=== PATIENT | male | born 1940 | race Caucasian/White ===

== ENCOUNTER 2024-09-21 19:26 | Observation (INO) | payer MEDICARE, BC, SELFPAY ==
[2024-09-21 15:12] VITALS: BP 103/88
[2024-09-21 15:57] LABS: ALT (SGPT) 17 U/L (0-50); AST (SGOT) 24 U/L (17-59); Albumin 4.4 g/dl (3.5-5.0); Alkaline Phosphatase 74 U/L (38-126); Blood Urea Nitrogen 35 mg/dl (9-20); Calcium 9.6 mg/dl (8.4-10.2); Carbon Dioxide 26 mmol/L (22-30); Chloride 104 mmol/L (98-107); Estimated Creatinine Clearance 39 ml/min; Glucose 170 mg/dl (70-99); Potassium 3.5 mmol/L (3.5-5.1); Sodium 143 mmol/L (135-145); Total Bilirubin 0.8 mg/dl (0.2-1.3); Total Protein 7.2 g/dl (6.3-8.2); eGFR > 60.00
[2024-09-21 16:00] VITALS: BP 116/55
[2024-09-21 16:22] LABS: % Basophils 0.4 % (0-2); % Eosinophils 1.2 % (0-6); % Immature Granulocytes 0.5 % (0-0.5); % Lymphocytes 26.7 % (20.5-51.1); % Monocytes 8.2 % (1.7-9.3); Absolute Eosinophils 0.1 10^3/uL (0-0.7); Absolute Immature Granulocytes 0.1 10^3/uL (0-0.05); Absolute Lymphocytes 2.7 10^3/uL (1.2-3.4); Absolute Monocytes 0.8 10^3/uL (0.1-0.6); Absolute Neutrophils 6.4 10^3/uL (1.4-6.5); Hematocrit 45.6 % (39.0-52.0); Mean Corp Hgb Conc. 35.1 g/dL (33.0-37.0); Mean Corpuscular Hgb 31.5 pg (27.0-31.0); Mean Corpuscular Volume 89.8 fL (80.0-94.0); Mean Platelet Volume 10.1 fL (7.4-10.4); Nucleated Red Blood Cells % 0 % (-); Platelet Count 271 10^3/uL (130-400); Red Blood Cell Count 5.08 10^6/uL (4.70-6.10); Red Cell Dist. Width 12.8 % (11.5-14.5); White Blood Cell Count 10.2 10^3/uL (4.8-10.8)
--- NOTE | 2024-09-21 16:36 | ED.GENMED ---
History of Present Illness
General
Chief Complaint: Weakness
Source: patient, family and ambulance crew
Exam Limitations: dementia
Time Seen by Provider: 09/21/24 16:03
Nursing documentation reviewed up to this point in time: agreed with
History of Present Illness
History of Present Illness:
84 y/o M with h/o dementia, htn
according to his , pt is more weak than usual and she thinks his legs are weak and he isn't walking well
she also said that he is having a hard time feeding himself the past 2 days
pt has severe dementia baseline
she sleeps on the couch so that she can hear if he tries to get out
pt has not had any fever,chills, vomiting, diarrhea, h/o recurrent UTIs
no abdominal pain
i spoke with , who isn't here, and initially this is the story she told me but after a second call, she tells me that she is tryign to have him placed in a NH and she has reached out to [facility] and that they watned him
evaluated first.
pt's says he is too much for her becuase she is sick
Past History
Past History
ED Past Medical History: HTN and Other (dementia)
ED Past Surgical History: Urological
Social History
Tobacco: Non-smoker
Alcohol: None
Drug: None
Personal:
Living: with family
Employment: Retired
Family History
Family History: Other (Noncontributory)
Review of Systems
Review of Systems
Allergies reviewed?: Yes
Unable to obtain full review of systems at this time due to: dementia
Other source history: family
All Other Systems: Not applicable
Phy Exam
Physical Exam
Physical Exam:
GENERAL: Alert , dementia
HEAD: NCAT
MMM
CV: regular
lugns: clear, no resp distress
NEUROLOGICAL: Alert , oriented to person only; follows commands, no focal neuro deficits, , 5/5 strength, sensation intact, ambulation, does occ get off balance but mostly walking
SKIN: Warm and dry,
MUSCULOSKELETAL: no deformities, moving all exremities; doesn't appear weak
PSYCH: dementia.
Course
Orders/Labs/Results
Orders:
Orders
09/21/24 15:21
CBC/With Diff [Complete Blood Count/With Diff] Urgent
CMP [Comprehensive Metabolic Panel] Urgent
09/21/24 16:38
CT Head W/o Iv Contrast Urgent
Comment:
Reason For Exam: weakness, falling
Urinalysis Reflex To Culture Urgent
09/21/24 16:39
Orthostatic VS- Treatment ONCE
09/21/24 17:10
COVID-19 Antigen Urgent
Source: Nasal Swab
Influenza A+B Rapid Molecular Urgent
ALBERTO Source: Nasal Swab
Specimen Description:
09/21/24 17:40
Lorazepam [Ativan] 0.5 mg IV NOW STA
09/21/24 17:42
0.9% Sodium Chloride 500 ml [Nss] 500 ml IV BOLUS
Abnormal Lab Results
09/21/24
15:21
MCH 31.5 H pg
(27.0-31.0)
Abs Immat Gran (auto) 0.1 H 10^3/uL
(0-0.05)
Absolute Monos (auto) 0.8 H 10^3/uL
(0.1-0.6)
BUN 35 H mg/dl
(9-20)
Glucose 170 H mg/dl
(70-99)
09/21/24 15:21
09/21/24 15:21
Vital Signs
Initial and Last Documented VS:
Initial Vital Signs
Temp Pulse Resp BP Pulse Ox
98.0 F 82 16 103/88 96
09/21/24 15:12 09/21/24 15:12 09/21/24 15:12 09/21/24 15:12 09/21/24 15:12
Last Documented Vital Signs
Temp Pulse Resp BP Pulse Ox
98.0 F 90 20 96/68 96
09/21/24 15:12 09/21/24 17:26 09/21/24 17:00 09/21/24 17:00 09/21/24 16:30
MDM/Problems Addressed
MDM/Problems Addressed:
room 37 is duyen martinez 84 y/o M
from home EMS
initially who is not here, but is poke with on the phone said that he has been weak x 2 days, not walking well, nearly falling, not feeding himself, and she thought maybe he had a stroke
but he has no weakness on exam, and is walking, mostly unassisted, but with his dementia he is a little unsteady because he is pulling at his cords etc
baseline confusion (i have seen him before)
follows commands
afebrile
wbc normal
covid/flu neg
bun elevated
head ct artifact but neg other than sinus opacification
no acute sinus sypmtoms
i spoke with again and it seems that he is becoming too much for her to handle, and she thinks he needs rehab or a mcfp/snf
he is a little off balance when he stands; so would get pt/ot to see him and CM;
he is also slightly hypotensive, so will hydrate with IVF
*Critical Care Note
Total Time (30-74mins, 75-104mins- exclusive of procedures): Not Applicable
ED Attending Note
-
Portions of this chart may have been created with voice recognition software.� Occasional wrong word or��sound alike� substitutions may have occurred due to the inherent limitations of voice recognition software.
Discharge Plan
Departure
Patient Disposition: Admit
Date of Disposition: 09/21/24
Time of Disposition: 18:07
Presentation/result/management discussed w/ accepting MD/DO: Hospitalist
Condition: Fair
Covid-19: Not Applicable
Discharge Problem:
Dementia, Dehydration, Weakness
Prescriptions:
No Action
lorazepam 0.5 MG tablet
0.5 mg PO Q6HPRN PRN (Reason: agitation)
acetaminophen [Tylenol] 325 mg Tablet
650 mg PO Q4HPRN PRN (Reason: mild pain)
acetaminophen 650 mg Suppository
650 mg NC Q4HPRN PRN (Reason: fever)
acetaminophen [Tylenol Extra Strength] 500 mg Tablet
1,000 mg PO Q6HPRN PRN (Reason: moderate pain)
magnesium hydroxide [Milk of Magnesia] 400 mg/5 mL Suspension
2,400 mg PO P31SCPH PRN (Reason: if no bm by 3rd day)
bisacodyl [Dulcolax (bisacodyl)] 10 mg Suppository
10 mg NC DAILYPRN PRN (Reason: if no bm aftr mom)
escitalopram oxalate [Lexapro] 10 mg Tablet
10 mg PO DAILY
bisoprolol-hydrochlorothiazide 2.5-6.25 mg Tablet
1 tab PO DAILY
amlodipine 5 MG tablet
5 mg PO BID
benazepril 10 MG tablet
10 mg PO DAILY
Referrals:
NONE,* [Family Provider] -
Interventions
Interventions:
*Risk Screen - Suicide Last Done: 09/21/24 15:12
*General Assessment Last Done: 09/21/24 15:12
*Neglect/Abuse Screening Last Done: 09/21/24 15:12
*ED COVID-19 Vaccine History Last Done: 09/21/24 16:52
ED- Cardiac Assessment Last Done: 09/21/24 16:52
ED- Neurological Assessment Last Done: 09/21/24 16:52
ED- Pulmonary Assessment Last Done: 09/21/24 16:52
Discharge Date and Time
Print Language: SETSWANA
[2024-09-21 17:00] VITALS: BP 96/68
[2024-09-21 17:44] LABS: COVID-19 Antigen Negative (Negative)
[2024-09-21] MEDS: ATIVAN 0.5 MG IV (17:46)
[2024-09-21] MEDS: NSS 500 IV (17:46)
--- NOTE | 2024-09-21 18:37 | HPS.HSE ---
Family Physician
-
Family Physician: * NONE
Chief Complaint
-
Reported decreased oral intake increased weakness per
History of Present Illness
84-year-old male complaining of from home by EMS who stated to ER his told them he has been weak for the past 2 days not walking as well and not feeding himself. On arrival to the ER patient has no appreciated weakness and is walking
unassisted he has baseline confusion with history of dementia ER spoke with who states that it is just becoming too hard for her to handle him at home and she wants a rehab or senior living placement. Patient is currently pleasant and was
sleeping when awoken he is oriented to first and last name, 's name Camelia. He complains of feeling very tired and eating and drinking less. He denies headache, sore throat, chest pain, palpitation, shortness of breath, abdominal pain,
nausea, vomiting, diarrhea, urinary symptoms. He is moving all extremities in bed without weakness or difficulty. He is able to follow directions. He has past medical history dementia with behavioral disturbances, hypertension, BPH
-
Medical History
Past Medical History
Past Medical History: Reports Other
Additional Past Medical History:
Hypertension
Dementia with behavioral disturbance
BPH
Past Surgical History: Reports None
Social History
Tobacco: Non-smoker
Alcohol: None
Drug: None
Personal:
Living: With Family
Employment: Retired
Family History
Family History: Unable to Obtain
Allergies / Home Medications
Allergies reflects when Allergies were last updated in [employer].
Home Medications with original date entered in [employer]
Allergy/Medication List:
Allergies
Allergy/AdvReac Type Severity Reaction Status Date / Time
adhesive tape Allergy Rash Verified 09/21/24 15:20
aspirin Allergy nose bleeds Verified 09/21/24 15:20
Influenza Virus Vaccines Allergy Unknown Verified 09/21/24 15:20
Home Medications
amlodipine 5 mg tablet 5 mg PO DAILY Blood Pressure 01/23/12
benazepril 10 mg tablet 10 mg PO DAILY Blood Pressure 01/23/12
lorazepam 0.5 mg tablet 0.5 mg PO Q8HPRN PRN agitation 07/17/19
bisoprolol 2.5 mg-hydrochlorothiazide 6.25 mg tablet 1 tab PO DAILY 10/16/23
Review of Systems
-
History Source: Patient and Other (Per ER record we spoke with patient's Camelia)
Constitutional: Reports Fatigue; Denies Fever or Chills
EENT: Denies Sore Throat or Runny Nose
Respiratory: Denies Cough or Trouble Breathing
Cardiac: Denies Chest Pain, Diaphoresis, Palpitations or Syncope
Abdomen/GI: Denies Abdominal Pain, Nausea, Vomiting, Diarrhea, Constipated, Bloody Stools or Black Stools
: Denies Dysuria, Frequency, Flank Pain, Incontinence, Difficulty Voiding or Urgency
Musculoskeletal: Denies Joint Pain or Edema
Skin: Denies Itching or Rash
Neurological: Denies Dizzy, Headache or Weakness
Endocrine: Reports No Symptoms
Hematologic/Lymphatic: Reports No Symptoms
Psych: Reports Calm
Physical Exam
Vital Signs
Vital Signs
Temp Pulse Resp BP Pulse Ox
98.0 F 90 20 96/68 96
09/21/24 15:12 09/21/24 17:26 09/21/24 17:00 09/21/24 17:00 09/21/24 16:30
Physical Exam
General: Comfortable, Conversant and Other (Pleasantly confused oriented to first and last name and 's name Camelia only but is able to follow commands and give review of systems); No Pain, Fever or Chills
HEENT: NormoCephalic, Anicteric, PERRLA, [place] Conjunctivae, No Ptosis and Other (Dry oral mucosa)
Respiratory: Clear; No Wheezes, Rales or Rhonchi
Cardiac: S1/S2, Regular Rhythm and Murmur (Systolic 2/6); No Rub, Gallop or Peripheral Edema
Breast: Deferred by me
GI: Soft, Non Tender, Non Distended, Normal Bowel Sounds and No Hepatosplenomegaly
Rectal: Deferred by Provider
Genito-urinary: Deferred by me
Musculoskeletal: No Clubbing, No Cyanosis and No Edema
Skin: Warm and Dry; No Rash or Jaundice
Neuro: Awake, Alert, Oriented (Pleasantly confused oriented to first and last name and 's name Camelia only but is able to follow commands and give review of systems), No Sensory Deficits and Other (Moving all extremities in bed without
difficulty); No Slurred Speech, Facial Droop, Tremors or Sedated
Psych: Calm
Laboratory Results
-
09/21/24 15:21
09/21/24 15:21
Laboratory Results
Total Bilirubin 0.8 mg/dl (0.2-1.3) 09/21/24 15:21
AST 24 U/L (17-59) 09/21/24 15:21
ALT 17 U/L (0-50) 09/21/24 15:21
Alkaline Phosphatase 74 U/L (38-126) 09/21/24 15:21
Data Reviewed
-
Lab Data: Labs Reviewed by me
Impression/Plan
-
Impression/plan:
Observation MedSurg
#Decreased oral intake/ volume depletion
BP 96/68
BUn 35
Iv NSS 80/hr
- consult dietary
-follow bmp
#Inability to care for self due to chronic dementia
- sent to hospital she wants senior living placement she can no longer take care of him
with history sending patient to hospital multiple times for placement
[facility]
consult PT/OT/CASE MGMT
#Chronic dementia reported baseline confusion
History of agitation and aggression August 2023�was placed on risperidone at that time
-Continue Ativan 0.5 mg every 8 hours as needed agitation
CT head: No acute intracranial abnormality
# Hypotension due to lack of oral intake/HTN
IV NSS bolus
-Will monitor
#BPH
-No reported meds
Dvt proph
sq heparin
DNR per to provider JOSIAH in ER
--- NOTE | 2024-09-21 19:50 | W.PN.UPDATE ---
Update Note
Progress Note Update
Patient seen in conjunction with DONNY. I agree with the findings on history and physical. I concur with the assessment and plan unless stated otherwise.
This an 84-year-old male with past medical history significant for advanced dementia, mild behavioral changes, hypertension, BPH who was sent to the emergency department by spouse for complaints of increased confusion, weakness and unsteadiness with
some gait difficulties. Patient has not had any falls. Does no syncopal episode. He is had no fevers or chills. On evaluation of the patient he appears to be at his baseline mental status and which is pleasantly demented, alert, oriented to
person and occasionally to others. He has no focal neurological deficits and specifically no weakness. He was able to ambulate without any difficulty. Review spouse reports that he is more difficult to take care of now and she does not want him
to return home at this time.
Vital signs were relatively stable in the emergency department. He was afebrile, his blood pressure was slightly lower than usual at 98/60, his oxygen saturation was 96% on room air. CT of the head was unremarkable. CBC was unremarkable. Is
chemistries were only notable for slight elevation in his BUN to 35. COVID test was negative.
A&P
Patient with dementia, chronically confused and slightly unsteady but essentially unchanged from baseline appears to be slightly more dehydrated compared to his baseline and the need some additional care that can be offered at home at this time. No
significant agitation or behavioral changes compated to baseline.
-Admit to MedSurg observation, IV fluids overnight, holding antihypertensives, check orthostatics
- PT eval, CM for placement.
DVT PPX - heparin sq
Code Status - DNR
[2024-09-21 21:21] VITALS: BP 142/68; BMI 19.7
--- NOTE | 2024-09-21 21:30 | PTCARENOTE ---
Patient arrived to unit from ED to 336-1 via stretcher -- pulled over from stretcher to bed with assist of 2 person. Patient alert but confused, does not appear to understand that he is in the hospital or what for. Patient attempted to climb OOB as
soon as he arrived to unit. Bed alarm placed under patient. Within the first hour of being on the unit, patient attempted to climb OOB 4 times. Patient is not easily redirected. Medsitter placed with patient for safety as patient is weak and
continuously attempting to get OOB. Remains restless. DONNY Batista notified -- one time dose PO risperdal ordered and provided to patient without much effect. Restraint orders placed for patient, were not needed to be placed on patient as patient
eventually fell asleep. Call tirado within reach, medsitter maintained, will continue to monitor.
[2024-09-21] MEDS: HEPARIN 5000 UNITS SC (23:16)
[2024-09-21] MEDS: RISPERDAL M-TAB (ORALLY DISINTEGRATING) 1 MG PO (23:19)
[2024-09-21] MEDS: NSS 1000 IV (23:20)
[2024-09-22 06:00] VITALS: BMI 19.7
[2024-09-22 07:00] VITALS: BP 125/86
[2024-09-22 08:31] LABS: % Basophils 0.4 % (0-2); % Eosinophils 1.3 % (0-6); % Immature Granulocytes 0.5 % (0-0.5); % Lymphocytes 23.4 % (20.5-51.1); % Neutrophils 66.4 % (42.2-75.2); Absolute Eosinophils 0.1 10^3/uL (0-0.7); Absolute Monocytes 0.7 10^3/uL (0.1-0.6); Absolute Neutrophils 5.6 10^3/uL (1.4-6.5); Hematocrit 42.1 % (39.0-52.0); Hemoglobin 14.6 g/dL (13.0-18.0); Mean Corp Hgb Conc. 34.7 g/dL (33.0-37.0); Mean Corpuscular Volume 89.4 fL (80.0-94.0); Mean Platelet Volume 10.2 fL (7.4-10.4); Nucleated Red Blood Cells % 0 % (-); Platelet Count 222 10^3/uL (130-400); Red Blood Cell Count 4.71 10^6/uL (4.70-6.10); Red Cell Dist. Width 12.6 % (11.5-14.5); White Blood Cell Count 8.5 10^3/uL (4.8-10.8)
[2024-09-22 08:44] LABS: Blood Urea Nitrogen 20 mg/dl (9-20); Calcium 8.7 mg/dl (8.4-10.2); Carbon Dioxide 27 mmol/L (22-30); Chloride 104 mmol/L (98-107); Estimated Creatinine Clearance 60 ml/min; Glucose 99 mg/dl (70-99); Potassium 3.2 mmol/L (3.5-5.1); Sodium 144 mmol/L (135-145); eGFR > 60.00
[2024-09-22 09:14] LABS: TSH Reflex To Free T4 5.08 uIU/ml (0.47-4.68)
[2024-09-22 09:44] LABS: Free T4 1.15 ng/dl (0.78-2.19)
--- NOTE | 2024-09-22 09:53 | W.PN.HOSP.TC ---
Addendum entered and electronically signed by Adrien Ordonez MD 09/22/24 15:39:
Correction: UA pending
Original Note:
Today's Communication/Plan
-
See PN
Assessment / Plan
Assessment / Plan
84yo M with PMHx of HTN, dementia brought by his apparently jax decreased oral intake and concern that she will not be able to take care of him. UA neg for infection. TSH mildly elevated, can be normal for age
A/P:
#Advanced dementia with decreased oral intake
CT shest pedning
No fever, no leukocytosis
Head CT without acute findings
TSH 5.08 with normal FT4 - can be normal for 84yo
UA neg for infection
CM for placement
PT/OT/PUBLIC RELATIONS DIRECTOR
#Hypokalemia
replete and follow
#Essential HTN
holding home BP meds to avoid hypotension
IVF with concern for dehydration
DVt ppx hep
DNR/DNI
I have spent at least 38min reviewing chart, test results, communication with consultants and direct patient care
Anticipated Discharge: Within 24 hours
Subjective/Interval History
-
Date of Service: September 22, 2024
Objective Data
-
Labs:
Laboratory Results
09/22/24
08:02
WBC 8.5
Hgb 14.6
Hct 42.1
Plt Count 222
Sodium 144
Potassium 3.2 L
Chloride 104
Carbon Dioxide 27
BUN 20
Creatinine 0.7
Glucose 99
Calcium 8.7
Vital Signs:
Vital Signs
Temp Pulse Resp BP Pulse Ox
97.9 F 73 16 125/86 96
09/21/24 21:21 09/22/24 07:00 09/22/24 07:00 09/22/24 07:00 09/22/24 07:00
I&O
09/21/24 09/22/24 09/23/24
06:59 06:59 06:59
Intake Total 120 / 120
Balance 120 / 120
Review of Systems
-
Unable to obtain full review of systems at this time due to: Dementia
History Source: Patient
Physical Exam
-
General: No Apparent Distress
HEENT: Normocephalic
Respiratory: Clear to Auscultation
Cardiac: Regular Rhythm
GI: Soft, Nontender and Nondistended
Musculoskeletal: No Clubbing, No Cyanosis and No Edema
Skin: Warm
Neuro: Awake and Alert
Psych: Calm and Apparent Dementia
[2024-09-22] MEDS: KCL 40 MEQ PO (10:26)
[2024-09-22] MEDS: HEPARIN 5000 UNITS SC ×2 (10:27→21:15)
[2024-09-22] MEDS: ZESTRIL 10 MG PO (10:27)
[2024-09-22] MEDS: NSS 1000 IV (10:28)
--- NOTE | 2024-09-22 13:52 | PTCARENOTE ---
Restraints removed at 1000. Patient ambulated to bathroom, voided. Cooperative and redirectable.
[2024-09-22 13:53] VITALS: BP 118/65; BP 126/75; PULSE 87; O2SAT 95
[2024-09-22 15:00] VITALS: BP 126/67
--- NOTE | 2024-09-22 16:33 | CM ---
Addendum entered by Jeannie Lira RN 09/22/24 16:44:
Reviewed SMITH letter with dgt . Copy left in room .Copy on chart.
Addendum entered by Jeannie Lira RN 09/22/24 16:42:
PCP DR Denney
Original Note:
sleepy confused patient who lives with his Camelia who lives in a 2 story home with 0 step to enter and 14 steps to bed and bathroom. He is assisted in all activities of daily living.He was recently at [facility].On a Medsitter.
Information received from dgt Cathy. Will need PT OT eval for dc plan.
No VN hx / [facility] history
Pharmacy [facility] [address]
PLAN will need PT OT for dc planning
[2024-09-22] MEDS: RISPERDAL 1 MG PO ×2 (18:20→21:15)
--- NOTE | 2024-09-22 18:25 | PTCARENOTE ---
Pt calm/cooperative in AM. Restraints removed at 10 AM and ambulated to bathroom with assistance. Now, as getting later becoming more agitated. Continually getting up and trying to leave, 'I have to go to work', cursing at staff and not
redirectable. TT to Dr. Beth, will give HS risperdal dose early. Medistitter and bed alarm remain in place.
[2024-09-23] MEDS: NSS 1000 IV ×2 (05:33→16:54)
[2024-09-23] MEDS: RISPERDAL 0.5 MG PO (05:33)
--- NOTE | 2024-09-23 05:34 | PTCARENOTE ---
Pt resting comfortably most of night, until approx 3am he became increasing restless. DONNY Murrell aware, directed to give 8am dose of risperdal early.
[2024-09-23 06:00] VITALS: BMI 19.5
[2024-09-23 07:28] VITALS: BP 144/70
[2024-09-23] MEDS: ZESTRIL 10 MG PO (08:14)
[2024-09-23] MEDS: HEPARIN 5000 UNITS SC ×2 (08:15→20:27)
[2024-09-23 08:36] LABS: Blood Urea Nitrogen 13 mg/dl (9-20); Calcium 8.7 mg/dl (8.4-10.2); Carbon Dioxide 26 mmol/L (22-30); Chloride 105 mmol/L (98-107); Estimated Creatinine Clearance 59 ml/min; Glucose 123 mg/dl (70-99); Potassium 3.6 mmol/L (3.5-5.1); Sodium 143 mmol/L (135-145); eGFR > 60.00
--- NOTE | 2024-09-23 08:50 | PTOTSP ---
Speech Language Pathology
Pt seen for clinical bedside swallow evaluation. P.O. trials of puree, regular solids, and thin liquids provided. Adequate mastication, bolus formation, and A-P transit noted with no oral residue. No overt signs of aspiration. CXR with no acute
findings.
Recommend:
(1) Continue regular solids/thin liquids
(2) General aspiration precautions
(3) Meds as tolerated
(4) LIVE IN HOUSEKEEPER NANNY to sign off. Please reconsult as indicated.
--- NOTE | 2024-09-23 09:02 | W.PN.HOSP.TC ---
Today's Communication/Plan
-
check UA
Pending syphilis screen
CM for placement
Assessment / Plan
Assessment / Plan
84yo M with PMHx of HTN, dementia brought by his apparently jax decreased oral intake and concern that she will not be able to take care of him. UA neg for infection. TSH mildly elevated, can be normal for age. Patient was admitted 1 year ago
and was seen by psychiatrist at that time due to similar episodes of agitation, started on Risperidal, but as per - was not continuing it at home. is interested in placedment
A/P:
#Advanced dementia with decreased oral intake
CT shest pedning
No fever, no leukocytosis
Head CT without acute findings
TSH 5.08 with normal FT4 - can be normal for 84yo
UA pending
Chest XR without signs of pneumonia
Syphilis screen pending
CM for placement
PT/OT/FINANCE PROFESSOR
#Hypokalemia
replete and follow
#Essential HTN
holding home BP meds to avoid hypotension
IVF with concern for dehydration
DVt ppx hep
DNR/DNI
I have spent at least 38min reviewing chart, test results, communication with consultants and direct patient care
Anticipated Discharge: Within 24 hours
Subjective/Interval History
-
Date of Service: September 23, 2024
Objective Data
-
Labs:
Laboratory Results
09/23/24
07:29
Sodium 143
Potassium 3.6
Chloride 105
Carbon Dioxide 26
BUN 13
Creatinine 0.7
Glucose 123 H
Calcium 8.7
Vital Signs:
Vital Signs
Temp Pulse Resp BP Pulse Ox
97.6 F 74 18 144/70 97
09/23/24 07:28 09/23/24 07:28 09/23/24 07:28 09/23/24 07:28 09/23/24 07:28
I&O
09/22/24 09/23/24 09/24/24
06:59 06:59 06:59
Intake Total 120 / 120 480 / 600 120 / 120
Balance 120 / 120 480 / 600 120 / 120
Review of Systems
-
Unable to obtain full review of systems at this time due to: Dementia
History Source: Patient
Physical Exam
-
General: No Apparent Distress
HEENT: Normocephalic
Respiratory: Clear to Auscultation
GI: Soft, Nontender and Nondistended
Musculoskeletal: No Clubbing, No Cyanosis and No Edema
Neuro: Awake, Alert and Oriented (to himself only)
Psych: Calm
[2024-09-23 11:26] LABS: Urine Albumin Negative (Neg - Trace); Urine Bilirubin Negative (Negative); Urine Character Clear (Clear); Urine Color Yellow; Urine Glucose Trace (Negative); Urine Ketone 3+ (Negative); Urine Leukocyte Negative (Negative); Urine Nitrite Negative (Negative); Urine Occult Blood Negative (Negative); Urine Urobilinogen Negative (Neg - 1+)
--- NOTE | 2024-09-23 14:21 | CM ---
CM reviewed pt with Mery- medically stable but in restraints
Awaiting dementia behaviors to stabilize
Multiple conversations with spouse to review dc planning
She noted she is interested in memory care at [facility] [phone]
Call with Mikayla who noted pt does not have financial resources for facility
Also noted pt either has hx or current with [facility] for inability to care for pt at home
Call with [facility] department- pt admitted 08/14-08/17, currently outside of 30 day window
Per Adenike/Quynh, not eligible for waiver
Spouse requesting large net of referrals
She does not want him to return to [facility]
In agreement with private pay for SNF as pt without qualifying stay
PASRR completed and pending
Call with Lilliana meraz/Yasmine [phone]
She confirmed pt is active with [facility] currently
She noted per system, they are aware he is in the hospital
Discharge Disposition- SNF private pay for LTC
[2024-09-23 15:12] VITALS: BP 128/64
--- NOTE | 2024-09-23 15:43 | CS.PSYCHR ---
Consult Summary - Psychiatry
-
Pt is 84 yo male with his of dementia brought in to ED by due to reported difficulty walking and not eating. Pt noted able to ambulate unassisted in ED. reportedly c/o not being able to manage pt's behavior at home. Pt seen by
Psychiatry during previous admission Aug to Sep 2023 for behavior disturbance. Pt seen sitting in bed in soft wrist restraints, calm and pleasant, but not able to give any relevant history. No agitation at present, no overt signs of psychosis.
Psych hx: none known, other than dementia. PCP Rx Ativan 0.5 mg TID, 90-day supply, last filled May 2024,
Hx of elopement and wandering on the road- noted stopped by police in the past
PMH: HTN, BPH. Brain MRI done 2016 for cognitive impairment- showed some diffuse volume loss and chronic small vessel disease
SH: has lived with , who reportedly states she can no longer manage his behavior
No know hx of substance abuse
MSE: alert, sensorium intact, pleasant, resting in bed. No current agitation or signs of psychosis. Insight impaired. Unable to provide history due to apparent dementia
Imp: Dementia with behavior disturbance; hx of worsening when hospital stay is extended- pt unable to understand why he is here
Rec: Continue Ativan prn for agitation
Agree with Risperidone 0.5 mg daily and 1 mg HS- somewhat effective during previous stay.
Could give IM Zyprexa 5 mg prn for more severe agitation as previously
Will follow
[2024-09-23 23:10] VITALS: BP 126/59
[2024-09-24 06:00] VITALS: BMI 20.1
[2024-09-24 07:15] VITALS: BP 143/79
[2024-09-24] MEDS: ZESTRIL 10 MG PO (08:06)
[2024-09-24] MEDS: RISPERDAL 0.5 MG PO (08:07)
[2024-09-24] MEDS: HEPARIN 5000 UNITS SC ×2 (08:07→21:32)
--- NOTE | 2024-09-24 10:36 | W.PN.HOSP.TC ---
Today's Communication/Plan
-
placement attempts by CM
Assessment / Plan
Assessment / Plan
84yo M with PMHx of HTN, dementia brought by his apparently eith decreased oral intake and concern that she will not be able to take care of him. UA neg for infection, XR without signs of pneumonia. TSH mildly elevated, can be normal for age.
Patient was admitted 1 year ago and was seen by psychiatrist at that time due to similar episodes of agitation, started on Risperidal, but as per - was not continuing it at home. is interested in placement - medically stable for D/C,
however as per CM - adult protective services also involved that can be a delay for placement in memory care unit.
A/P:
#Advanced dementia with decreased oral intake
CT shest pedning
No fever, no leukocytosis
Head CT without acute findings
TSH 5.08 with normal FT4 - can be normal for 84yo
UA neg for infection
Chest XR without signs of pneumonia
Syphilis screen pending
CM for placement
PT/OT/HEATING AND AIR CONDITIONING MECHANIC
#Hypokalemia
replete and follow
#Essential HTN
holding home BP meds to avoid hypotension
IVF with concern for dehydration
DVt ppx hep
DNR/DNI
I have spent at least 38min reviewing chart, test results, communication with consultants and direct patient care
Anticipated Discharge: > 48 hours
Subjective/Interval History
-
Date of Service: September 24, 2024
Objective Data
-
Vital Signs:
Vital Signs
Temp Pulse Resp BP Pulse Ox
97.1 F 91 18 143/79 96
09/24/24 07:15 09/24/24 08:06 09/24/24 07:15 09/24/24 08:06 09/24/24 07:15
I&O
09/23/24 09/24/24 09/25/24
06:59 06:59 06:59
Intake Total 480 / 600 1919 / 192
Output Total 500 / 500
Balance 480 / 600 0 / 1420
Review of Systems
-
Unable to obtain full review of systems at this time due to: Dementia
History Source: Patient
All other systems: Reviewed and negative
Physical Exam
-
General: No Apparent Distress
HEENT: Normocephalic
Respiratory: Clear to Auscultation
GI: Soft, Nontender and Nondistended
Musculoskeletal: No Clubbing, No Cyanosis and No Edema
Neuro: Awake, Alert and Oriented (to himself)
Psych: Calm and Apparent Dementia
--- NOTE | 2024-09-24 11:12 | W.PN.UPDATE ---
Update Note
Progress Note Update
Patient seen at bedside, chart reviewed, discussed with staff. Mr. Hammond is currently calmly resting, no acute events reported overnight. Not much collateral information available. It appears is finding it more difficult to care for patient at
home with his dementia.
Impression/Recommendations: Dementia with behavior disturbance - Continue Risperidone 0.5 mg daily and 1 mg HS as well as Ativan PRN for agitation. CM following for placement.
[2024-09-24 14:47] LABS: Syphilis/T. pallidum Ab Reflex Negative (Negative)
[2024-09-24 15:05] VITALS: BP 129/76
[2024-09-24] MEDS: NSS (PRESERVATIVE FREE) 0.25 ML IV (15:16)
[2024-09-24] MEDS: ATIVAN 0.5 MG IV (15:16)
--- NOTE | 2024-09-24 16:17 | CM ---
CM reviewed chart- pt remains in restraints
Onsitw viait with with [facility] for [facility] dementia unit
They are interested in offering bed pending off restraints
mis manager received angry call from spouse
notes possibility leaving AMA as she is not pleased with restraints
VM left with Arnie STALEY requesting call back to discuss
Lengthy call with spouse- she was crying through call
Notes significant pain issues and she has emergent call in with her doctor
Spouse in agreement with SNF- will decide on facility once closer to dc
She noes he was released recently from [facility]
Pt likely now with qualifying stay
CM will continue to follow for dc planning
Discharge Disposition- SNF
[2024-09-24] MEDS: RISPERDAL 1 MG PO (21:32)
[2024-09-24 23:30] VITALS: BP 139/80
[2024-09-25 06:00] VITALS: BMI 19.5
[2024-09-25 07:43] VITALS: BP 119/85
[2024-09-25] MEDS: HEPARIN 5000 UNITS SC ×2 (09:36→20:54)
[2024-09-25] MEDS: ZESTRIL 10 MG PO (09:36)
[2024-09-25] MEDS: RISPERDAL 0.5 MG PO (09:36)
--- NOTE | 2024-09-25 12:02 | W.PN.HOSP.TC ---
Today's Communication/Plan
-
repeat BW
bladder scan
CM for placement
Assessment / Plan
Assessment / Plan
84yo M with PMHx of HTN, dementia brought by his apparently eith decreased oral intake and concern that she will not be able to take care of him. UA neg for infection, XR without signs of pneumonia. TSH mildly elevated, can be normal for age.
Patient was admitted 1 year ago and was seen by psychiatrist at that time due to similar episodes of agitation, started on Risperidal, but as per - was not continuing it at home. is interested in placement - medically stable for D/C,
however as per CM - adult protective services also involved that can be a delay for placement in memory care unit.
A/P:
#Advanced dementia with decreased oral intake
CT shest pedning
No fever, no leukocytosis
Head CT without acute findings
TSH 5.08 with normal FT4 - can be normal for 84yo
UA neg for infection
Chest XR without signs of pneumonia
Syphilis screen pending
CM for placement
PT/OT/FIELD ENUMERATOR
#Hypokalemia
replete and follow
#Essential HTN
holding home BP meds to avoid hypotension
IVF with concern for dehydration
DVt ppx hep
DNR/DNI
I have spent at least 38min reviewing chart, test results, communication with consultants and direct patient care
Anticipated Discharge: > 48 hours
Subjective/Interval History
-
Date of Service: September 25, 2024
Objective Data
-
Vital Signs:
Vital Signs
Temp Pulse Resp BP Pulse Ox
98.4 F 78 15 119/85 96
09/25/24 07:43 09/25/24 07:43 09/25/24 07:43 09/25/24 07:43 09/25/24 07:43
I&O
1009/25/24 09/26/24
06:59 06:59 06:59
Intake Total 1919 / 1919 420 / 420
Output Total 500 / 500 650 / 650
Balance 1420 / 1420 -230 / -230
Review of Systems
-
Unable to obtain full review of systems at this time due to: Dementia
History Source: Patient
Physical Exam
-
General: No Apparent Distress
Respiratory: Clear to Auscultation
Cardiac: Regular Rhythm
Musculoskeletal: No Clubbing, No Cyanosis and No Edema
Neuro: Other (sleepy)
--- NOTE | 2024-09-25 12:40 | W.PN.UPDATE ---
Addendum entered and electronically signed by Joe Jimenez MD 09/25/24 13:25:
returned to see patient at 115pm. he was awake and alert eating his lunch. remains confused but very pleasantly so. he conversed with me in south korean and lithuanian which i can speak telling me he speaks 'perfect lithuanian' as he was born in [place] and
some south korean which he has visited in his life. discussed w dr anderson. given how sedated he was this am we agreed to dc am risperdal will continue to follow
Original Note:
Update Note
Progress Note Update
spoke witn nursing and with cm. the patient was sleeping and i did not wake him. i will return to see him this afternoon. the patient has been taking risperdal o.5 mg in the am one mg q hs. he has not been in restraints about 24 hours and nsg
reports today he has been very quiet and sleepy. i considered dc of am risperdal however i remember him from the last admit and he was quite agitated not infrequently and do not want to unleash that again. cm tells me that he had been at md as
unable to care for him at home but she had brought him home although it seems nh again being sought at this point as he had not been doing well at home having been admitted for weakness and not eating. the patient has hx dementia. no changes
made in meds this am. will see him this afternoon to assess level of sedation
[2024-09-25 12:58] LABS: % Basophils 0.4 % (0-2); % Immature Granulocytes 0.1 % (0-0.5); % Neutrophils 61.5 % (42.2-75.2); Absolute Eosinophils 0.1 10^3/uL (0-0.7); Absolute Lymphocytes 1.9 10^3/uL (1.2-3.4); Absolute Monocytes 0.6 10^3/uL (0.1-0.6); Absolute Neutrophils 4.2 10^3/uL (1.4-6.5); Hematocrit 45.9 % (39.0-52.0); Hemoglobin 15.8 g/dL (13.0-18.0); Mean Corp Hgb Conc. 34.4 g/dL (33.0-37.0); Mean Corpuscular Hgb 31.7 pg (27.0-31.0); Mean Corpuscular Volume 92.2 fL (80.0-94.0); Mean Platelet Volume 9.9 fL (7.4-10.4); Nucleated Red Blood Cells % 0 % (-); Platelet Count 228 10^3/uL (130-400); Red Blood Cell Count 4.98 10^6/uL (4.70-6.10); Red Cell Dist. Width 12.8 % (11.5-14.5); White Blood Cell Count 6.9 10^3/uL (4.8-10.8)
[2024-09-25 13:20] LABS: ALT (SGPT) 20 U/L (0-50); AST (SGOT) 27 U/L (17-59); Albumin 3.9 g/dl (3.5-5.0); Alkaline Phosphatase 64 U/L (38-126); Blood Urea Nitrogen 15 mg/dl (9-20); Calcium 9.4 mg/dl (8.4-10.2); Carbon Dioxide 27 mmol/L (22-30); Chloride 102 mmol/L (98-107); Estimated Creatinine Clearance 41 ml/min; Glucose 156 mg/dl (70-99); Potassium 3.8 mmol/L (3.5-5.1); Sodium 142 mmol/L (135-145); Total Bilirubin 0.6 mg/dl (0.2-1.3); Total Protein 6.5 g/dl (6.3-8.2); eGFR > 60.00
--- NOTE | 2024-09-25 13:35 | PTCARENOTE ---
pt drowsy but easily aroused. Ate all of his breakfast with assist. incont. care provided, bladder scan to ensure no retention, 127. CB in reach. hourly rounds.
[2024-09-25 15:11] VITALS: BP 111/61
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
[2024-09-25] MEDS: RISPERDAL 1 MG PO (20:54)
[2024-09-25] MEDS: SENOKOT-S 1 TABLET PO (20:54)
[2024-09-25 23:45] VITALS: BP 130/73
[2024-09-26 06:00] VITALS: BMI 19.4
[2024-09-26 07:53] VITALS: BP 137/84
[2024-09-26 08:50] VITALS: BP 140/80
--- NOTE | 2024-09-26 08:56 | W.PN.HOSP.TC ---
Addendum entered and electronically signed by Adrien Ordonez MD 09/26/24 15:08:
per further communication - APS did not provide any special instructions for the patient
is interested in certain SNF and working to get him there, but declined offered [facility], however she is agreeable to keep patient in the hospital for safety (as PT recommended 2 persons assistance for ambulation) until placement plan,
that she agrees to, will be established
Addendum entered and electronically signed by Adrien Ordonez MD 09/26/24 14:35:
As per communication with CM:
APS involved due to concerns that patient cannot be managed at home safely
Currently accepting facility available for the patient, but declined placement to it and state attempting to get a guardianship on the patient to provide safe placement
Medically patient remains stable for d/c, however discharge to home is not a safe option as per APS assessment
Pat this point discussion on APS involvement should be limited with due to patient safety concerns as she might be willing to request discharge AMA
Original Note:
Today's Communication/Plan
-
cont placement efforts
Assessment / Plan
Assessment / Plan
84yo M with PMHx of HTN, dementia brought by his apparently eith decreased oral intake and concern that she will not be able to take care of him. UA neg for infection, XR without signs of pneumonia. TSH mildly elevated, can be normal for age.
Patient was admitted 1 year ago and was seen by psychiatrist at that time due to similar episodes of agitation, started on Risperidal, but as per - was not continuing it at home. is interested in placement - medically stable for D/C,
however as per CM - adult protective services also involved that can be a delay for placement in memory care unit. Apparently state is attempting to obtain guardianship of the patient. declined offered SNF at this time
A/P:
#Advanced dementia with decreased oral intake
CT shest pedning
No fever, no leukocytosis
Head CT without acute findings
TSH 5.08 with normal FT4 - can be normal for 84yo
UA neg for infection
Chest XR without signs of pneumonia
Syphilis screen neg
CM for placement
PT/OT/AWAKE OVERNIGHT MONITOR
#Hypokalemia
replete and follow
#Essential HTN
adjusting meds
DVt ppx hep
DNR/DNI
I have spent at least 38min reviewing chart, test results, communication with consultants and direct patient care
Anticipated Discharge: > 48 hours
Subjective/Interval History
-
Date of Service: September 26, 2024
Objective Data
-
Vital Signs:
Vital Signs
Temp Pulse Resp BP Pulse Ox
97.4 F 77 17 140/80 96
09/26/24 08:50 09/26/24 08:50 09/26/24 08:50 09/26/24 08:50 09/26/24 08:50
I&O
09/25/24 09/26/24 09/27/24
06:59 06:59 06:59
Intake Total 420 / 420 750 / 750
Output Total 650 / 650
Balance -230 / -230 750 / 750
Review of Systems
-
History Source: Patient
All other systems: Reviewed and negative
Physical Exam
-
General: No Apparent Distress
HEENT: Normocephalic
Cardiac: Regular Rhythm
GI: Soft
Neuro: Awake and Alert
Psych: Calm and Apparent Dementia
[2024-09-26] MEDS: ZESTRIL 10 MG PO (09:24)
[2024-09-26] MEDS: SENOKOT-S 1 TABLET PO ×2 (09:24→20:17)
[2024-09-26] MEDS: HEPARIN 5000 UNITS SC ×2 (09:25→20:17)
[2024-09-26] MEDS: NORVASC 2.5 MG PO (11:24)
--- NOTE | 2024-09-26 12:20 | CON.MD ---
Consultation - Medical
-
patient seen chart reviewed. spoke with nursing and rhonda watkins. the patient is an 84 year old male known to this internal communications writer since an admit in august of 2023 when he was seen by psychiatry. he had been admitted at that time for aggression in the context
of dementia. he was s stabilized with risperdal . his did not feel she could care for him at home and he was discharged to a nursing facility. case mgt informed me that had patient return home with her at some point. he returned to the
[facility] on september 21, 2024 with complaint of weakness and not eating. he had a few episodes of aggression which were managed with risperdal which was decreased yesterday morning to q hs as he was sedated in the morning on the bid dosage of 0.5 mg q am
and one mg q hs. both dr anderson and this internal communications writer checked on him yesterday afternoon and he was at that time awake and confused yet pleasant. this consult was ordered as there is some concern that he is not doing well at home and that his does
not want him placed in a nursing facility yet she is unable to care for him. staff was alarmed by her conversation with his and alerted AAA who requested a consult re capacity and are considering attempting to obtain guardianship. while the
patient will converse with you, he is unaware of where he is. he could not tell me he was in a hospital although i gave him three choices. he could not even hazard a guess as to what year it was. he could not tell me why he was here or what
illnesses he had that were requiring treatment. the patient curiously did not mention his when i asked about his family but he did tell me he had three children. patient does have a hx of dementia and cat scan brain shows chronic small vessel
disease. noted patient did not eat anything yet today and on admit he appeared to be somewhat dehydrated w bun of 35 and 3+urinary ketones
past medical hx patient with hx htn. ascvd gait abnormality urinary retnetion leg edema tsh inc but nl T4 ua negative cxr and head cat without acute changes
past psych hx dementia
fh non contributory
social hx most recently patient had been residing w his . he is a retired gil and was able to tell me he was born in [place]. he speaks chilean and bangladeshi in addition to north korean. i attempted to talk to him in those languages to see if i
could elicit more information but was not successful. while he could answer ? re his occupation / number of kids he could not tell me any relevant information about his current life situation
mse alert but oriented only to person. pleasant and at present cooperative. speech at time is difficult to understand as he tends to mumble. thought process and content impaired by dementia. patient does not appear depressed affect constricted
insight judgment lacking
dx dementia with behavioral disturbance currently calm and cooperative
recommendations: Patient given impairment due to dementia process does not have the mental capacity to make decisions concerning his medical treatment or disposition on his own behalf. would continue with risperdal as is for now monitoring for
sedation and decreasing if he appears to be sedated. psych will follow loosely
--- NOTE | 2024-09-26 12:30 | CM ---
Addendum entered by Jessika Lemos 09/26/24 16:50:
Attending agreed to complete Documentation of Medical Evaluation; CM hand delivered the form to him
Attending instructed to Fax completed form to Lilibeth Gannon @ [facility];
At discharge, hard copy of script for controlled drug will go with the patient; Attending is aware to write it
Addendum entered by Jessika Lemos 09/26/24 15:18:
Per Attending, agreed to staying in the hospital until placement @ [facility] can be arranged.
does not want patient to go to [facility]
Original Note:
CM received a telephone call from Ashtyn Landry from [facility] on [facility] ([facility]) (# [phone]); Ashtyn reported that the [facility] Office would be completing the face to face assessment
Patient's called; adamant that she was told that her would be discharged to home; and would be assessed by [facility] for placement
Explained to patient's that her was not stable or cleared for discharge today.
asked that CM contact [facility].
CM spoke with Lilibeth Gannon, Quality Assurance Specialist @ [facility] via phone # [phone]
Lilibeth reported that she has spoken with patient's and will call her again about possible placement @ [facility]
Lilibeth reported that she has spoken to [facility] on [facility]; and per her request CM left her contact information via voice mail with Cindy Hewitt @ #[phone] @ [facility] on [facility] and Ashtyn Landry from [facility] @ #
[phone]
Per Cindy Hewitt's request, Psych notes were faxed to her @ # [phone]
[2024-09-26 15:25] VITALS: BP 133/66
[2024-09-26] MEDS: RISPERDAL 1 MG PO (21:40)
[2024-09-26 23:50] VITALS: BP 138/70
[2024-09-27] MEDS: ATIVAN 0.5 MG IV (00:45)
[2024-09-27] MEDS: NSS (PRESERVATIVE FREE) 0.25 ML IV (00:45)
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
[2024-09-27 05:28] VITALS: BMI 19.4
[2024-09-27 06:00] VITALS: BMI 19.4
[2024-09-27 07:15] VITALS: BP 140/82
[2024-09-27] MEDS: NORVASC 2.5 MG PO (09:48)
[2024-09-27] MEDS: ZESTRIL 10 MG PO (09:48)
[2024-09-27] MEDS: SENOKOT-S 1 TABLET PO ×2 (09:48→21:41)
[2024-09-27] MEDS: HEPARIN 5000 UNITS SC ×2 (09:48→21:41)
--- NOTE | 2024-09-27 10:59 | W.PN.HOSP.TC ---
Today's Communication/Plan
-
remains medically stable for d/c
Assessment / Plan
Assessment / Plan
84yo M with PMHx of HTN, dementia brought by his apparently eith decreased oral intake and concern that she will not be able to take care of him. UA neg for infection, XR without signs of pneumonia. TSH mildly elevated, can be normal for age.
Patient was admitted 1 year ago and was seen by psychiatrist at that time due to similar episodes of agitation, started on Risperidal, but as per - was not continuing it at home. is interested in placement - medically stable for D/C,
however as per - adult protective services also involved that can be a delay for placement in memory care unit. Apparently [facility] is attempting to obtain guardianship of the patient. wanted patient to be placed to certain SNF, DME form
signed and sent, pending further arrangement with
A/P:
#Advanced dementia with decreased oral intake
No fever, no leukocytosis
Head CT without acute findings
TSH 5.08 with normal FT4 - can be normal for 84yo
UA neg for infection
Chest XR without signs of pneumonia
Syphilis screen neg
CM for placement
PT/OT/DIRECTOR OF WEB MARKETING
#Hypokalemia
replete and follow
#Essential HTN
adjusting meds
DVt ppx hep
DNR/DNI
I have spent at least 38min reviewing chart, test results, communication with consultants and direct patient care
Anticipated Discharge: > 48 hours
Subjective/Interval History
-
Date of Service: September 27, 2024
Objective Data
-
Vital Signs:
Vital Signs
Temp Pulse Resp BP Pulse Ox
97.4 F 73 18 140/82 96
09/27/24 07:15 09/27/24 07:15 09/27/24 07:15 09/27/24 07:15 09/27/24 07:15
I&O
09/26/24 09/27/24 09/28/24
06:59 06:59 06:59
Intake Total 750 / 750 540 / 540
Balance 750 / 750 540 / 540
Review of Systems
-
Unable to obtain full review of systems at this time due to: Dementia
History Source: Patient
Physical Exam
-
General: No Apparent Distress
HEENT: Normocephalic
Respiratory: Clear to Auscultation
Cardiac: Regular Rhythm
Neuro: Awake, Alert and Oriented (to himself)
Psych: Calm and Apparent Dementia
--- NOTE | 2024-09-27 12:11 | W.PN.UPDATE ---
Update Note
Progress Note Update
patient seen chart reviewed. discussed w nursing. the patient was agitated in the night trying to get out of bed and received ativan prn. this am he is to me a little less conversant. he is usually confused but will engage in pleasant conversation.
perhaps this is holdover from the ativan. nsg tells me he did eat a good breakfast. decreased the ativan prn to o.25 . also ordered melatonin 3 mg q hs for sleep.
[2024-09-27 16:00] VITALS: BP 140/63
--- NOTE | 2024-09-27 16:26 | CM ---
division sales manager spoke with Lilibeth Gannon [facility] [phone] and patient's spouse has completed all paperwork for admission to there facility, physician has completed all medical paperwork and re faxed today, Fax [phone]
[phone]. Plan is for patient to transfer to their facility [facility] on Monday. Per Lilibeth they would like transport set up between 10am-11am on 09/30/24.
[facility]
Report [phone]
[2024-09-27] MEDS: MELATONIN 3 MG PO (21:41)
[2024-09-27] MEDS: RISPERDAL 1 MG PO (21:41)
[2024-09-27 23:56] VITALS: BP 130/70
[2024-09-28 06:00] VITALS: BMI 19.5
[2024-09-28 07:48] VITALS: BP 131/74
[2024-09-28] MEDS: SENOKOT-S PO ×2 (10:52→20:26)
[2024-09-28] MEDS: ZESTRIL 10 MG PO (10:52)
[2024-09-28] MEDS: HEPARIN 5000 UNITS SC ×2 (10:52→20:27)
[2024-09-28] MEDS: NORVASC 2.5 MG PO (10:52)
--- NOTE | 2024-09-28 14:20 | W.PN.HOSP.TC ---
Today's Communication/Plan
-
pending placement
Assessment / Plan
Assessment / Plan
84yo M with PMHx of HTN, dementia brought by his apparently eith decreased oral intake and concern that she will not be able to take care of him. UA neg for infection, XR without signs of pneumonia. TSH mildly elevated, can be normal for age.
Patient was admitted 1 year ago and was seen by psychiatrist at that time due to similar episodes of agitation, started on Risperidal, but as per - was not continuing it at home. is interested in placement - medically stable for D/C,
however as per - adult protective services also involved that can be a delay for placement in memory care unit. Apparently [facility] is attempting to obtain guardianship of the patient. wanted patient to be placed to certain SNF, DME form
signed and sent, pending further arrangement with
A/P:
#Advanced dementia with decreased oral intake
No fever, no leukocytosis
Head CT without acute findings
TSH 5.08 with normal FT4 - can be normal for 84yo
UA neg for infection
Chest XR without signs of pneumonia
Syphilis screen neg
CM for placement
PT/OT/ENDOCRINOLOGY PHYSICIAN
#Hypokalemia
replete and follow
#Essential HTN
adjusting meds
DVt ppx hep
DNR/DNI
I have spent at least 38min reviewing chart, test results, communication with consultants and direct patient care
Anticipated Discharge: 24 - 48 hours
Subjective/Interval History
-
Date of Service: September 28, 2024
Objective Data
-
Vital Signs:
Vital Signs
Temp Pulse Resp BP Pulse Ox
97.9 F 58 16 131/74 99
09/28/24 07:48 09/28/24 07:48 09/28/24 07:48 09/28/24 07:48 09/28/24 07:48
I&O
09/27/24 09/28/24 09/29/24
06:59 06:59 05:59
Intake Total 540 / 540 720 / 720
Balance 540 / 540 720 / 720
Review of Systems
-
Unable to obtain full review of systems at this time due to: Dementia
History Source: Patient
Physical Exam
-
General: Well Developed
HEENT: Normocephalic
GI: Soft
Psych: Calm
[2024-09-28 15:49] VITALS: BP 122/64
--- NOTE | 2024-09-28 16:45 | W.PN.UPDATE ---
Update Note
Progress Note Update
Pt seen, chart reviewed. Sitting up in chair by bed, about to eat lunch and watching TV. Minimally conversant, says he wants to eat. Was unable to delve into orientation questions as pt was visibly getting upset about being interrupted during his
lunch, will return tomorrow and assess. Noted to have been agitated overnight but was redirectable. Dispo remains pending.
Continue risperidone 1mg HS + adding risperidone 0.25mg BIDPRN, would use this before resorting to prn ativan for agitation. However would continue to attempt to redirect and reorient prior to using prn medication.
[2024-09-28] MEDS: MELATONIN 3 MG PO (20:26)
[2024-09-28] MEDS: RISPERDAL 1 MG PO (20:26)
[2024-09-28 23:00] VITALS: BP 137/73
[2024-09-29] MEDS: NSS (PRESERVATIVE FREE) 0.125 ML IV (01:16)
[2024-09-29] MEDS: ATIVAN 0.25 MG IV (01:16)
--- NOTE | 2024-09-29 01:36 | W.PN.UPDATE ---
Update Note
Progress Note Update
Code purple was called. Patient seen to be standing up, unsteady, agitated, verbally and physically abusive to staff, also spitting at them as they were attempting to reorient patient to his bed. RN had just given him IV Ativan 0.25mg. Restraints
were placed for protective measures. Security gently placed him on to the bed, restraints placed, Continuos to curse at nurses, not attempting to get out of bed at present. Advised to take restraints off as patient calms down.
--- NOTE | 2024-09-29 01:56 | PTCARENOTE ---
Received call from [employer] at approx 0100 due to patient attempting to get OOB. Patient with large incontinent episode of urine and RN offered to assist patient to bathroom if needed. Patient refused and became agitated, combative and cursing at
staff during attempt to change patient's attends. Unable to redirect patient and PRN IV ativan given for agitation. After med administered, patient continued to get OOB and stand at bedside, cursing at staff with explicit language. Code purple
called. LACING PRESSER and additional staff at bedside to assist. B/L soft wrist restraint and 4 side rail restraint orders in place. Medsitter and alarm remains in place.
[2024-09-29 06:00] VITALS: BMI 19.3
[2024-09-29 07:15] VITALS: BP 124/80
[2024-09-29] MEDS: HEPARIN 5000 UNITS SC ×2 (07:46→21:03)
[2024-09-29] MEDS: NORVASC 2.5 MG PO (07:53)
[2024-09-29] MEDS: ZESTRIL 10 MG PO (07:54)
[2024-09-29] MEDS: SENOKOT-S PO (07:55)
[2024-09-29] MEDS: RISPERDAL 0.25 MG PO ×2 (08:20→21:02)
--- NOTE | 2024-09-29 11:12 | W.PN.HOSP.TC ---
Today's Communication/Plan
-
as per previous CM communication: possible acceptance to SNF in AM
Assessment / Plan
Assessment / Plan
84yo M with PMHx of HTN, dementia brought by his apparently jax decreased oral intake and concern that she will not be able to take care of him. UA neg for infection, XR without signs of pneumonia. TSH mildly elevated, can be normal for age.
Patient was admitted 1 year ago and was seen by psychiatrist at that time due to similar episodes of agitation, started on Risperidal, but as per - was not continuing it at home. is interested in placement - medically stable for D/C,
however as per CM - adult protective services also involved that can be a delay for placement in memory care unit. Apparently [facility] is attempting to obtain guardianship of the patient. wanted patient to be placed to certain SNF, DME form
signed and sent, pending further arrangement with
A/P:
#Advanced dementia with behavioral disturbances and episodes of delirium
No fever, no leukocytosis
Head CT without acute findings
TSH 5.08 with normal FT4 - can be normal for 84yo
UA neg for infection
Chest XR without signs of pneumonia
Syphilis screen neg
CM for placement
PT/OT/HISTOPATHOLOGY TECHNICIAN
#Hypokalemia
replete and follow
#Essential HTN
adjusting meds
DVt ppx hep
DNR/DNI
I have spent at least 38min reviewing chart, test results, communication with consultants and direct patient care
Anticipated Discharge: Within 24 hours
Subjective/Interval History
-
Date of Service: September 29, 2024
Objective Data
-
Vital Signs:
Vital Signs
Temp Pulse Resp BP Pulse Ox
97.6 F 85 16 124/80 96
09/29/24 07:15 09/29/24 07:54 09/29/24 07:15 09/29/24 07:54 09/29/24 07:15
I&O
09/28/24 09/29/24 09/30/24
07:59 06:59 06:59
Intake Total
Balance
Review of Systems
-
Unable to obtain full review of systems at this time due to: Dementia
History Source: Patient
Physical Exam
-
HEENT: Normocephalic, Atraumatic and Moist Mucous Membranes
Cardiac: Regular Rhythm
GI: Soft, Nontender and Nondistended
Skin: Warm
Neuro: Awake, Alert and Oriented (to himself only)
Psych: Agitated and Apparent Dementia
[2024-09-29 15:15] VITALS: BP 139/63
--- NOTE | 2024-09-29 17:51 | W.PN.UPDATE ---
Update Note
Progress Note Update
Pt seen, chart reviewed. Sitting up in chair by bed, watching TV. Minimally conversant, appears slightly suspicious but cooperative. Remains confused to some degree, however it seems that this is more acute overnight than during the day. Was
agitated overnight, received IV ativan but did not calm and code purple was called.
Increase risperidone to 1.25mg HS + continue risperidone 0.25mg BIDPRN, would use this before resorting to prn ativan for agitation.
IM haldol 1mg BIDPRN acute agitation & PO refusal - would use this before using prn ativan as ativan can potentially worsen agitation in dementia & delirium.
Continue to attempt to redirect and reorient prior to using prn medication.
--- NOTE | 2024-09-29 18:32 | PTCARENOTE ---
Restraints taken off at 8am. Continued to monitor pt and maintain pt safety throughout the day with redirection and PRN medication.
[2024-09-29] MEDS: MELATONIN 3 MG PO (21:02)
[2024-09-29] MEDS: RISPERDAL 1 MG PO (21:02)
[2024-09-29] MEDS: SENOKOT-S 1 TABLET PO (21:03)
[2024-09-29 23:51] VITALS: BP 132/67
[2024-09-30] MEDS: RISPERDAL 0.25 MG PO (04:12)
[2024-09-30] MEDS: HEPARIN 5000 UNITS SC (08:43)
[2024-09-30] MEDS: SENOKOT-S 1 TABLET PO (08:43)
[2024-09-30] MEDS: ZESTRIL 10 MG PO (08:44)
[2024-09-30] MEDS: NORVASC 2.5 MG PO (08:50)
[2024-09-30 09:00] VITALS: BP 130/76
--- NOTE | 2024-09-30 09:21 | W.PN.HOSP.TC ---
Today's Communication/Plan
-
dc to memory care unit
Assessment / Plan
Assessment / Plan
84yo M with PMHx of HTN, dementia brought by his apparently jax decreased oral intake and concern that she will not be able to take care of him. UA neg for infection, XR without signs of pneumonia. TSH mildly elevated, can be normal for age.
Patient was admitted 1 year ago and was seen by psychiatrist at that time due to similar episodes of agitation, started on Risperidal, but as per - was not continuing it at home. is interested in placement - medically stable for D/C,
however as per - adult protective services also involved that can be a delay for placement in memory care unit. Apparently [facility] is attempting to obtain guardianship of the patient. wanted patient to be placed to certain SNF, DME form
signed and sent, pending further arrangement with
A/P:
#Advanced dementia with behavioral disturbances and episodes of delirium
No fever, no leukocytosis
Head CT without acute findings
TSH 5.08 with normal FT4 - can do Op repeat TFTs in 5-6 weeks
UA neg for infection
Chest XR without signs of pneumonia
Syphilis screen neg
Psych c/s -recs to increase risperidal to 1.25mg qhs and 0.25mg BID PRN
CM for placement
PT/OT/POWDERER
#Hypokalemia
replete and follow
#Essential HTN
Cont lisnopril.
Norvasc dose decreased
Bisprolol/HCTZ stopped
BP well controlled 130/76
DVt ppx hep
DNR/DNI
More than 30 minutes spent in discharge including
Final examination of the patient
Summarizing hospital stay
Instructions for continuing care to all relevant caregivers
Preparation of discharge records, prescriptions, and referral forms
Total time spent (in minutes): 40
Anticipated Discharge: Today
Subjective/Interval History
-
Date of Service: September 30, 2024
sitting in chair eating breakfast
calm this morning
Objective Data
-
Vital Signs:
Vital Signs
Temp Pulse Resp BP Pulse Ox
97.5 F 90 17 130/76 95
09/29/24 23:51 09/30/24 08:50 09/29/24 23:51 09/30/24 08:50 09/29/24 23:51
I&O
09/29/24 09/30/24 10/01/24
06:59 06:59 06:59
Intake Total 240 / 240
Balance 240 / 240
Physical Exam
-
General: No Apparent Distress and Comfortable
HEENT: Normocephalic, Atraumatic and Moist Mucous Membranes
Cardiac: Regular Rhythm and S1/S2
GI: Soft, Nontender, Nondistended and Normal Bowel Sounds
Skin: Warm
Neuro: Awake and Oriented (to himself only)
Psych: Apparent Dementia
--- NOTE | 2024-09-30 09:31 | W.DCSUMMARY ---
Discharge Summary
Discharge Data
Date of Admission: 09/21/24
Date of Discharge: 09/30/24
-
Pending Results: No
Hospital Course
84yo M with PMHx of HTN, dementia brought by his apparently with decreased oral intake and concern that she will not be able to take care of him. UA neg for infection, XR without signs of pneumonia. Patient was admitted 1 year ago and was
seen by psychiatrist at that time due to similar episodes of agitation, started on Risperidal, but as per - was not continuing it at home. is interested in placement - medically stable for D/C, however as per CM - adult protective services
also involved that can be a delay for placement in memory care unit. [facility] obtain guardianship of the patient. Patient was eval by psych. Patient blood pressure was low and was taken off bisoprolol and HCTZ. Norvasc
dose was decreased and continued on lisinopril. Patient was eval by psychiatry and started on Risperdal. Psych recommended 1.25 mg Risperdal nightly and 0.25 mg twice daily as needed. Patient with improvement in agitation and delirium. Patient
be discharged to memory care unit.
Discharge Plan
-
Patient Disposition: Residential/SNF
Discharge Diagnosis/Procedures: Advanced dementia with behavioral disturbances and episodes of delirium
Condition: Fair
Diet: Regular
Activity: As tolerated
Driving Restrictions: No driving
Referrals:
NONE,* [Family Provider] -
Prescriptions:
New
melatonin 3 mg Tablet
3 mg PO HS Qty: 30 0RF
sennosides-docusate sodium 8.6-50 mg Tablet
1 tab PO BID Qty: 60 0RF
risperidone 0.25 mg Tablet
0.25 mg PO HS 30 Days Qty: 30 0RF
risperidone 0.25 mg Tablet
0.25 mg PO BIDPRN PRN (Reason: agitation) Qty: 60 0RF
risperidone 1 mg Tablet
1 mg PO HS 30 Days Qty: 30 0RF
Continued
benazepril 10 MG tablet
10 mg PO DAILY
Changed
amlodipine 5 MG tablet
2.5 mg PO DAILY Qty: 0 0RF
Discontinued
lorazepam 0.5 MG tablet
0.5 mg PO Q8HPRN PRN (Reason: agitation)
Patient Comments:
09/21/24: last filled 06/20/24 for 270 tablets over 90 days.
bisoprolol-hydrochlorothiazide 2.5-6.25 mg Tablet
1 tab PO DAILY
Discharge Orders:
Discharge Patient (As Directed); Ordered 09/30/24
Ordered By: Dariel Beth
Discharge Date and Time
Discharge Date/Time: 09/30/24 13:00
Print Language: SURINAMESE
--- NOTE | 2024-09-30 10:06 | CM ---
Addendum entered by Henrietta Lomas 09/30/24 10:30:
Transport scheduled for 1245 pickup
Update to [facility] Darnell/Lilibeth
Call with spouse and update provided
Original Note:
CM reviewed pt with Dr Beth- ready for dc
Call with director/Lilibeth Patrick [phone]
Confirmed admission today
Referral to [facility] per her request
Pharmacy updated on chart to [facility]
Transport forms completed and on chart
Pt remains OBS- no IMM issued
Update to Arnie Hewitt
Phone- [phone]
Discharge Disposition- [facility] memory care with [facility] via BLS
Phone- [phone] Fax- [phone]
[facility] fax- [phone]
[2024-09-30 12:11] VITALS: BP 144/76
== END 2024-09-30 13:00 ==
LOC: 3 WEST ACU 19:26
PROVIDERS: Clinical Nurse Specialist Family Health; Emergency Medicine; Internal Medicine; Physician Assistant; ADMITTING PHYSICIAN Internal Medicine; ATTENDING PHYSICIAN Hospitalist; CONSULT PHYSICIAN Psychiatry & Neurology Psychiatry; EMERGENCY PHYSICIAN Student in an Organized Health Care Education/Training Program; OTHER PHYSICIAN Psychiatry & Neurology Psychiatry
DX: F03.C18 Unspecified dementia, severe, with other behavioral disturbance (principal); F03.C11 Unspecified dementia, severe, with agitation; R53.1 Weakness; F05 Delirium due to known physiological condition; I10 Essential (primary) hypertension; R79.89 Other specified abnormal findings of blood chemistry; I95.9 Hypotension, unspecified; E86.0 Dehydration; E87.6 Hypokalemia; R94.6 Abnormal results of thyroid function studies; N40.0 Benign prostatic hyperplasia without lower urinary tract symptoms; Z88.6 Allergy status to analgesic agent; Z88.7 Allergy status to serum and vaccine; Z91.048 Other nonmedicinal substance allergy status; Z66 Do not resuscitate; Z87.440 Personal history of urinary (tract) infections; Z75.1 Person awaiting admission to adequate facility elsewhere; Z78.1 Physical restraint status; Z11.52 Encounter for screening for COVID-19
CPT/HCPCS: 70450; 71045; 80048; 80053; 81003; 83735; 84439; 84443; 85025; 86780; 87502; 87811; 92610; 96374; 97116; 97162; 97167; 97530; 97535; 99285; G0378

== ENCOUNTER 2025-01-26 20:25 | Inpatient (IN) | payer MEDICARE, BC, SELFPAY ==
[2025-01-26] VITALS (7 sets, daily range): BP systolic 97–128; BP diastolic 58–73; BMI 18.3; BMI 20.8
[2025-01-26 17:37] LABS: % Basophils 0.2 % (0-2); % Eosinophils 0.9 % (0-6); % Immature Granulocytes 2.8 % (0-0.5); % Lymphocytes 16.9 % (20.5-51.1); % Monocytes 6.8 % (1.7-9.3); % Neutrophils 72.4 % (42.2-75.2); Absolute Eosinophils 0.1 10^3/uL (0-0.7); Absolute Immature Granulocytes 0.3 10^3/uL (0-0.05); Absolute Lymphocytes 1.7 10^3/uL (1.2-3.4); Absolute Monocytes 0.7 10^3/uL (0.1-0.6); Absolute Neutrophils 7.3 10^3/uL (1.4-6.5); Hemoglobin 13.6 g/dL (13.0-18.0); Mean Corp Hgb Conc. 30.9 g/dL (33.0-37.0); Mean Corpuscular Hgb 30.4 pg (27.0-31.0); Mean Corpuscular Volume 98.2 fL (80.0-94.0); Mean Platelet Volume 10.3 fL (7.4-10.4); Nucleated Red Blood Cells % 0 % (-); Platelet Count 289 10^3/uL (130-400); Red Blood Cell Count 4.48 10^6/uL (4.70-6.10); Red Cell Dist. Width 14.7 % (11.5-14.5); White Blood Cell Count 10.1 10^3/uL (4.8-10.8)
[2025-01-26 17:48] LABS: ALT (SGPT) 31 U/L (0-50); AST (SGOT) 29 U/L (17-59); Albumin 2.8 g/dl (3.5-5.0); Alkaline Phosphatase 95 U/L (38-126); Blood Urea Nitrogen 33 mg/dl (9-20); Calcium 8.5 mg/dl (8.4-10.2); Carbon Dioxide 32 mmol/L (22-30); Chloride 110 mmol/L (98-107); Glucose 371 mg/dl (70-99); Sodium 153 mmol/L (135-145); Total Bilirubin 0.6 mg/dl (0.2-1.3); Total Protein 6.8 g/dl (6.3-8.2); eGFR 54.17
--- NOTE | 2025-01-26 19:16 | ED.GENMED ---
History of Present Illness
General
Chief Complaint: Breathing Problem
Source: spouse
Exam Limitations: clinical condition
Time Seen by Provider: 01/26/25 17:08
History of Present Illness
History of Present Illness:
See MDM
Past History
Past History
ED Past Medical History: HTN and Other (dementia)
ED Past Surgical History: Urological
Social History
Tobacco: Non-smoker
Alcohol: None
Drug: None
Personal:
Living: with family
Employment: Retired
Family History
Family History: Other (Noncontributory)
Phy Exam
Physical Exam
Physical Exam:
See MDM
Scores
Heart Failure Risk
Heart Failure Risk Score: Not Applicable
Course
Orders/Labs/Results
Orders:
Orders
01/26/25 17:24
CXR2 [CR Chest - 2 Views ] Urgent
Comment:
Reason For Exam: pna
01/26/25 17:27
Complete Blood Count/With Diff Urgent
Comprehensive Metabolic Panel Urgent
01/26/25 19:13
0.9% Sodium Chloride 1000 ml [Nss] 1,000 ml IV BOLUS
Piperacillin/Tazo 3.375 Gram [Zosyn] 3.375 gram in 50 ml IV NOW
Vancomycin [Vancocin] 1,500 mg 0.9% Sodium Chloride 500 ml [Nss] 500 ml IV NOW
Abnormal Lab Results
01/26/25
17:27
RBC 4.48 L 10^6/uL
(4.70-6.10)
MCV 98.2 H fL
(80.0-94.0)
MCHC 30.9 L g/dL
(33.0-37.0)
RDW 14.7 H %
(11.5-14.5)
Abs Immat Gran (auto) 0.3 H 10^3/uL
(0-0.05)
Absolute Neuts (auto) 7.3 H 10^3/uL
(1.4-6.5)
Absolute Monos (auto) 0.7 H 10^3/uL
(0.1-0.6)
Immature Gran % 2.8 H %
(0-0.5)
Lymphocytes % 16.9 L %
(20.5-51.1)
Sodium 153 H mmol/L
(135-145)
Chloride 110 H mmol/L
(98-107)
Carbon Dioxide 32 H mmol/L
(22-30)
BUN 33 H mg/dl
(9-20)
Glucose 371 H mg/dl
(70-99)
Albumin 2.8 L g/dl
(3.5-5.0)
01/26/25 17:27
01/26/25 17:27
Vital Signs
Initial and Last Documented VS:
Initial Vital Signs
Pulse Ox
94
01/26/25 17:12
Last Documented Vital Signs
Temp Pulse Resp BP Pulse Ox
98.2 F 82 20 120/64 94
01/26/25 17:20 01/26/25 17:20 01/26/25 17:20 01/26/25 17:20 01/26/25 17:20
MDM/Problems Addressed
Differential Diagnosis Includes:
HPI and MDM Narrative:
84-year-old male presenting for evaluation of shortness of breath, weakness and hypoxia. is at bedside indicating that he was started on Levaquin for aspiration pneumonia. She states that he is progressively worsened. Patient is weak and
frail. Patient is hypoxic requiring 2 L nasal cannula. Chest x-ray was done prior to my evaluation showing evidence of pneumonia. Given outpatient failure, will start vancomycin and Zosyn. Will admit based on hypoxia and worsening pneumonia.
Patient is clinically dry. His sodium is in the 150s. Will start IV fluids. Blood sugar is elevated without evidence of DKA. This will also require treatment and followup
Physical exam
General: Weak and frail
HEENT: protecting airway. Dry mucous membranes
Neck: appears supple
CV: No evidence of cyanosis. Regular rate and rhythm
Resp: No accessory muscle use. Poor air exchange
Abd: Non-distended
Extremities: No deformities
Neuro: Confused and disoriented
Psych: Flat affect
Skin: Intact
Problems Addressed including Acute and Chronic Conditions affecting care:
1. Aspiration pneumonia
Acuity: acute
Prognosis: unstable
Details: Patient failing p.o. Levaquin. Will start IV vancomycin and Zosyn
2. Hypoxia
Acuity: acute
Prognosis: unstable
Details: Patient requiring 2 L nasal cannula
3. Hypernatremia
Acuity: acute
Prognosis: unstable
Details: Likely in setting of patient. Will start IV fluids
4. Hyperglycemia
Acuity: acute
Prognosis: stable
Details: No evidence of DKA. Will have this further assessed after IV fluids
Differential Diagnosis (but not limited to): Pneumonia, hypoxia, dehydration
Testing considered: Urinalysis
Drug therapy (if applicable): OTC meds, please see d/c instruction regarding Rx drugs
Amount and/or Complexity of Data Reviewed
Clinical info obtained from:
External data reviewed: N/A
Labs I independently reviewed (but not limited to): Hypernatremia, hyperglycemia
Radiology: X-ray independently reviewed: Chest x-ray consistent with right middle lobe pneumonia
Pulse Ox: hypoxic
EKG independently reviewed: N/A
Cheese Sprayer: Sinus rhythm
Critical Care: N/A
Risk of Complication:
Social Determinants of health: Good social support
Discussed with other providers: Hospitalist
Escalation of Care includes Admit/Obs: Given his hypoxia and antibiotic failure, will admit
Occasional wrong word or 'sound a like' substitutions may have occurred due to the inherent limitations of voice recognition software. Read the chart carefully and recognize, using context, where substitutions have occurred.
*Critical Care Note
Total Time (30-74mins, 75-104mins- exclusive of procedures): Not Applicable
ED Attending Note
-
Portions of this chart may have been created with voice recognition software.� Occasional wrong word or��sound alike� substitutions may have occurred due to the inherent limitations of voice recognition software.
Discharge Plan
Departure
Patient Disposition: Admit
Date of Disposition: 01/26/25
Time of Disposition: 19:21
Admit to: IMU
Presentation/result/management discussed w/ accepting MD/DO: Hospitalist
Discharge Problem:
Aspiration pneumonia, Hypoxia, Acute hypernatremia, Acute hyperglycemia
Prescriptions:
No Action
melatonin 3 mg Tablet
3 mg PO HS Qty: 30 0RF
sennosides-docusate sodium 8.6-50 mg Tablet
1 tab PO BID Qty: 60 0RF
risperidone 0.25 mg Tablet
0.25 mg PO HS 30 Days Qty: 30 0RF
risperidone 0.25 mg Tablet
0.25 mg PO BIDPRN PRN (Reason: agitation) Qty: 60 0RF
risperidone 1 mg Tablet
1 mg PO HS 30 Days Qty: 30 0RF
amlodipine 5 MG tablet
2.5 mg PO DAILY Qty: 0 0RF
benazepril 10 MG tablet
10 mg PO DAILY
Referrals:
Dirk Dillon MD [Family Provider] -
Interventions
Interventions:
*Risk Screen - Suicide Last Done: 01/26/25 17:20
*General Assessment Last Done: 01/26/25 17:20
Discharge Date and Time
Print Language: PERSIAN
--- NOTE | 2025-01-26 19:41 | HPS.HSE ---
Family Physician
-
Family Physician: Dirk Dillon
Chief Complaint
-
Shortness of breath
History of Present Illness
This is an 84-year-old with past medical history significant for dementia, dysphagia, hypertension, BPH, hypothyroid presents from skilled nursing facility with shortness of breath and failure to thrive.
Patient unable to provide any history given mental status dementia and the ED failure to thrive. History provided by spouse. Patient was specifically transferred by desire of family members.'s spouse stated that she last saw him about 10 days ago.
At that time he was in usual state of health. He was ambulatory and able to feed himself. He was speaking normally. He had no complaints and no shortness of breath according to family members. The daughter came to visit the patient today and
saw him in an extreme condition and requested transfer to the hospital. Denies any numbness. According to the chart records the patient was started on Levaquin on January 23. It appears to be related to pneumonitis due to inhalation of food and
vomit. He apparently was not on any oxygen at that time. Over the last few days he is required more supplemental oxygen. There was no record or history of vomiting.
On transfer to the emergency department he was afebrile with a temp of 98.2 he was satting 93% on 2 L, blood pressure was 120/64 with a pulse of 82 and respiratory rate of around 19-25. CBC was actually unremarkable with a white count of 10,
hemoglobin of 13.6 high. Count of 282. His sodium was markedly elevated at 153, bicarb was 32, BUN/creatinine were 33 and 1.3 respectively. Chest x-ray shows a left lower lobe as well as a right middle lobe opacity concerning for pneumonia.
Patient was started on broad-spectrum antibiotics.
Medical History
Past Medical History
Past Medical History: Reports Hypothyroidism and Other
Additional Past Medical History:
Hypertension
Dementia with behavioral disturbance
BPH
Past Surgical History: Reports None
Social History
Tobacco: Non-smoker
Alcohol: None
Drug: None
Personal:
Living: With Family
Employment: Retired
Family History
Family History: Not pertinent
Allergies / Home Medications
Allergies reflects when Allergies were last updated in [employer].
Home Medications with original date entered in [employer]
Allergy/Medication List:
Allergies
Allergy/AdvReac Type Severity Reaction Status Date / Time
Milk Containing Products Allergy Unknown Unknown Verified 01/26/25 19:34
(Dairy)
adhesive tape Allergy Rash Verified 09/21/24 15:20
aspirin Allergy nose bleeds Verified 09/21/24 15:20
Influenza Virus Vaccines Allergy Unknown Verified 09/21/24 15:20
Home Medications
benazepril 10 mg tablet 10 mg PO BID Blood Pressure 01/23/12
melatonin 3 mg tablet 3 mg PO HS #30 tabs 09/30/24
acetaminophen 325 mg tablet (Tylenol) 650 mg PO Q6HPRN PRN mild pain 01/26/25
amlodipine 5 mg tablet 5 mg PO BID Blood Pressure 01/26/25
bisacodyl 10 mg rectal suppository (Dulcolax (bisacodyl)) 10 mg SC DAILYPRN PRN if no bm aftr mom 01/26/25
bisoprolol fumarate 5 mg tablet 2.5 mg PO DAILY 01/26/25
clonidine HCl 0.1 mg tablet 0.1 mg PO BID 01/26/25
divalproex 125 mg capsule,delayed release sprinkle 125 mg PO TID 01/26/25
levofloxacin 750 mg tablet 750 mg PO QPM 01/26/25
levothyroxine 25 mcg tablet (Synthroid) 25 mcg PO DAILY 01/26/25
magnesium hydroxide 400 mg/5 mL oral suspension (Milk of Magnesia) 2,400 mg PO DAILYPRN PRN if no bm by 3rd day 01/26/25
polyethylene glycol 3350 17 gram oral powder packet (Miralax) 17 g PO DAILYPRN PRN constipation 01/26/25
sodium phosphates 19 gram-7 gram/118 mL enema (Fleet Enema) 118 ml SC DAILYPRN PRN if no bm aftr dulcolcax 01/26/25
trazodone 50 mg tablet 25 mg PO Q6HPRN PRN sleep 01/26/25
Review of Systems
-
Unable to obtain full review of systems at this time due to: Dementia
Physical Exam
Vital Signs
Vital Signs
Temp Pulse Resp BP Pulse Ox
98.2 F 76 13 107/63 94
01/26/25 17:20 01/26/25 19:15 01/26/25 19:15 01/26/25 19:00 01/26/25 19:15
Physical Exam
General: No Apparent Distress, Poor Appetite and Appears Chronically Ill
HEENT: NormoCephalic, Anicteric, Atraumatic, PERRLA and Oxygen; No Moist mucous membranes (dry mm)
Respiratory: Clear (anteriorly) and Decreased Breath Sounds
Cardiac: S1/S2 and Regular Rhythm
Breast: Deferred by me
GI: Soft, Non Tender, Non Distended and Normal Bowel Sounds
Rectal: Deferred by Provider
Genito-urinary: Deferred by me
Musculoskeletal: No Clubbing, No Cyanosis and No Edema
Skin: Warm
Neuro: Awake and Nonfocal/grossly intact
Hematologic/Lymphatic: No Lymphadenopathy
Psych: Calm
Laboratory Results
-
01/26/25 17:27
01/26/25 17:27
Laboratory Results
Total Bilirubin 0.6 mg/dl (0.2-1.3) 01/26/25 17:27
AST 29 U/L (17-59) 01/26/25 17:27
ALT 31 U/L (0-50) 01/26/25 17:27
Alkaline Phosphatase 95 U/L (38-126) 01/26/25 17:27
Data Reviewed
-
Diagnostic Radiology: Image Personally Visualized and interpreted and Report Reviewed by me
Lab Data: Labs Reviewed by me
Old Records: Reviewed
Impression/Plan
-
IMPRESSION:
84 y.o with dementia at MD, recently started on levaquin (01/23) for aspiration and has declined since then. Here has apparent pneumonia, dehydration and failure to thrive.
PLAN:
1. Pneumonia - Possibly aspiration versus healthcare acquired pneumonia. Hypoxia on 2 L. Elevated serum bicarb possibly hypercapnic versus contraction alkalosis. Mild increase in wob but no accessory muscle use. Hemodynamically stable.
- admit to IMU
- checking VBG, if acidotic, will start bipap as tolerated
- blood culture
- check legionella and strep ag
- check flu/covid
- continue vanc/zosyn for now, check mrsa swab
- supportive measures with nebs and antitussives and antiemetics
- given infection and depressed mental status will hold sedatives (trazodone, depakote, melatonin)
2.Hypernatremia - Hypovolemic hypernatremia. Total volume down and loss of free water.
- 1 L NS bolus
- lactated ringers at 100 ml/hr
- repeat Na in 6 hours
3. HTN - HD stable
- hold benazepril and amlodipine
- continue clonidine with hold parameters
- continue bisoprolol wtih hold parameters
PT eval
Diet soft mechanical/thin
DVT PPX - lovenox sq
Code status - Limited DNR, intubation OK, No CPR.
[2025-01-26] MEDS: NSS 1000 IV (19:56)
[2025-01-26] MEDS: ZOSYN 50 IV (19:56)
[2025-01-26 20:21] LABS: Venous Blood Gas B.E. 8.8 mmol/L (-4 to +4); Venous Blood Gas HCO3 33.5 mmol/L (22-27); Venous Blood Gas O2 Sat % 99.8 %; Venous Blood Gas pCO2 45 mmHg (35-48); Venous Blood Gas pH 7.48 (7.32-7.43); Venous Blood Gas pO2 108 mmHg (30-50)
[2025-01-26 20:48] LABS: COVID-19 Antigen Negative (Negative)
[2025-01-26] MEDS: VANCOCIN 530 MG IV (20:58)
--- NOTE | 2025-01-26 22:33 | PHA.VAN.IN ---
Assessment
- Assessment
Renal Function: Appears elevated from baseline (SCR 1.3 vs ~0.7)
Concomitant Antimicrobials: piperacillin/tazobactam
Plan
- Plan
Initial / Loading Dose: 1500mg - 01/26 20:58
Maintenance Regimen: dosing by level
Monitoring: random 01/27 0600
MRSA Screen: Ordered per protocol
Pharmacokinetics Vancomycin I
- -
Patient Age: 84
Patient Sex: Male
Vancomycin Day #: 1
Indication: Pulmonary/Respiratory
Requesting Provider: Dr. Rai
Pertinent Antimicrobial Allergies:
no pertinent antimicrobial allergies
Height / Weight:
Height 5 ft 4 in
Actual Weight 48.3 kg
IBW in k
Pertinent Past Medical History: BMI ~18
- Vital Signs / Lab Results
Temp Pulse Resp BP Pulse Ox
98.2 F 82 16 128/69 94
01/26/25 17:20 01/26/25 21:00 01/26/25 21:00 01/26/25 21:00 01/26/25 21:00
Lab Results - Hematology
01/26/25
17:27
WBC 10.1
Lab Results - Chemistry
01/26/25
17:27
BUN 33 H
Creatinine 1.3
Albumin 2.8 L
Microbiology Results
01/26/25 19:58 Influenza Types A & B (SHA) - Final
Nasal Swab Negative for Influenza A & B, NAAT
Negative results must be combined with clinical observations
and patient history.
Nucleic Acid Amplification test (NAAT)performed on the
[employer] platform.
--- NOTE | 2025-01-26 22:40 | PTCARENOTE ---
Pt arrived from ED, disoriented, drowsy and does not answer questions when nursing staff talks to Pt. and son at the bedside. vss. Pt incontinent of large amount of urine, Pt changed and condom cath applied. nsr on monitor. pox 95% on 2L NC.
bed alarm in place. call tirado within reach.
[2025-01-26] MEDS: CATAPRES PO (23:51)
[2025-01-26] MEDS: LR 1000 IV (23:54)
[2025-01-26] MEDS: HEPARIN 5000 UNITS SC (23:58)
[2025-01-27] VITALS (12 sets, daily range): BP systolic 106–152; BP diastolic 61–84; PULSE 81; O2SAT 95
--- NOTE | 2025-01-27 00:10 | PTCARENOTE ---
PT drowsy/lethargic. Pt mumbles answers and does not follow commands. no po pills given. Pt did not cooperate.
[2025-01-27 00:11] LABS: Blood Urea Nitrogen 27 mg/dl (9-20); Calcium 7.8 mg/dl (8.4-10.2); Carbon Dioxide 30 mmol/L (22-30); Chloride 118 mmol/L (98-107); Estimated Creatinine Clearance 38 ml/min; Glucose 122 mg/dl (70-99); Potassium 3.6 mmol/L (3.5-5.1); Sodium 152 mmol/L (135-145); eGFR > 60.00
[2025-01-27 00:17] LABS: Glucose - Point of Care 107 mg/dl (70-99)
[2025-01-27] MEDS: ZOSYN 50 IV ×2 (03:16→09:06)
[2025-01-27 03:41] LABS: Hematocrit 42.9 % (39.0-52.0); Hemoglobin 13.5 g/dL (13.0-18.0); Mean Corp Hgb Conc. 31.5 g/dL (33.0-37.0); Mean Corpuscular Volume 95.3 fL (80.0-94.0); Mean Platelet Volume 10.1 fL (7.4-10.4); Platelet Count 291 10^3/uL (130-400); Red Cell Dist. Width 14.7 % (11.5-14.5)
[2025-01-27 04:27] LABS: Vancomycin Random 18.9 ug/ml
[2025-01-27] MEDS: SYNTHROID PO (06:07)
[2025-01-27 06:55] LABS: Blood Urea Nitrogen 23 mg/dl (9-20); Calcium 8.2 mg/dl (8.4-10.2); Carbon Dioxide 32 mmol/L (22-30); Chloride 114 mmol/L (98-107); Estimated Creatinine Clearance 38 ml/min; Glucose 149 mg/dl (70-99); Potassium 3.8 mmol/L (3.5-5.1); Sodium 152 mmol/L (135-145); eGFR > 60.00
[2025-01-27] MEDS: DUONEB 3 ML INH ×4 (07:06→19:23)
--- NOTE | 2025-01-27 08:00 | PTCARENOTE ---
Cannot confirm accuracy of vital signs captured for nightshift from [id number].
[2025-01-27 08:31] LABS: Glucose - Point of Care 124 mg/dl (70-99)
[2025-01-27] MEDS: NOVOLOG FLEXPEN-LOW RESISTANCE SC (08:42)
[2025-01-27] MEDS: HEPARIN 5000 UNITS SC ×3 (09:03→23:08)
[2025-01-27] MEDS: ZEBETA 2.5 MG PO (09:04)
[2025-01-27] MEDS: CATAPRES 0.1 MG PO (09:04)
[2025-01-27 10:00] LABS: Glycohemoglobin (HgbA1c) 7.2 % (4.0-5.6)
--- NOTE | 2025-01-27 10:02 | CM ---
Addendum entered by Mallika Camacho RN 01/27/25 10:14:
Plan follow up after seen by PT.
Plan contact patient's for d/c planning.
Plan probable return to [facility] when medically ready.
Original Note:
Patient from [facility] with Hx dementia with Dx PNA, dehydration and failure to thrive. O2 2L. Receiving IVF, IV Abx. PT Eval pending. ST Eval pending. Dysphagia diet.
Spoke with Shital, s [facility];
the patient was transferred from [facility] to [facility] and was there for short term rehab, not on a bed hold.
The patient was very confused, required much assistance for ADLs, and was not ambulating.
He was receiving PT/OT.
The patient was not on O2.
Pharmacy - [facility]
Physician - Dr Miguel Juarez
The ph for report to 3rd floor nurses station [phone], fax [phone].
Plan return to [facility] when medically ready.
--- NOTE | 2025-01-27 10:31 | PTOTSP ---
Speech Therapy Evaluation:
Pt presents with clinical signs of oropharyngeal dysphagia, likely chronic related to dementia, compounded by SOB, weakness, and hypoxia in the setting of PNA. Pt previously evaluated by ST in 2023 with functional swallow and recommendations
for regular/thin liquids. On this date, pt demonstrated slow but functional oral phase with perseveration of chewing following oral clearance with solids and liquids. 1x subtle throat clear with thin liquids via single cup sip. No prior or
subsequent s/sx of aspiration across PO trials. Occasional eructation noted throughout meal. CXR with LLL and to a lesser extent RML opacity suspicious for pneumonia. Per chart review, PNA possibly aspiration versus healthcare acquired pneumonia.
Recommend:
1. Continue IDDSI Level 5 (minced and moist solids) and thin liquids
2. Medications as tolerated
3. 1:1 assistance and supervision with PO intake
4. General aspiration and reflux precautions
5. FINANCIAL SERVICES SALES REPRESENTATIVE to follow re: tolerance of diet, need for further diet modification, candidacy for further diet advancement, and to determine if pt would benefit from instrumental assessment
[2025-01-27] MEDS: LR IV (10:41)
[2025-01-27] MEDS: 0.45%NACL 1000 IV ×2 (10:53→21:09)
[2025-01-27 13:31] LABS: Glucose - Point of Care 152 mg/dl (70-99)
[2025-01-27] MEDS: NOVOLOG FLEXPEN-LOW RESISTANCE 1 UNITS SC (13:50)
[2025-01-27] MEDS: UNASYN IV ×2 (14:05→19:55)
--- NOTE | 2025-01-27 16:51 | W.PN.HOSP.TC ---
Today's Communication/Plan
-
see note
downgrade to med/surg
Assessment / Plan
Assessment / Plan
1. Presumed aspiration pneumonia
Sepsis -improving
-Chest x-ray showing bilateral infiltrates
-Legionella/strep pneumonia/flu/COVID-negative
-Blood culture pending
-Adjust antibiotic to empiric Unasyn
2. Acute hypoxic respiratory insufficiency
-Wean off as possible
3. Toxic metabolic encephalopathy
Hypernatremia
-Hypernatremic with decreased oral intake likely
-change IVF to 0.45 NS
-f/u BMP
-Avoid sedative medication as possible
4. Dementia without behavioral problems
-Continue Depakote and hold trazodone for today
Essential HTN
Hypothyroidism
Limited DNR
Total time spent : 54 mins
Anticipated Discharge: 24 - 48 hours
Subjective/Interval History
-
Date of Service: January 27, 2025
Patient somnolent
Remains on oxygen through nasal cannula
Afebrile overnight
No other reported problems
Objective Data
-
Labs:
Laboratory Results
01/27/25 01/27/25
06:11 17:00
Sodium 152 H Pending
Potassium 3.8 Pending
Chloride 114 H Pending
Carbon Dioxide 32 H Pending
BUN 23 H Pending
Creatinine 1.0 Pending
Glucose 149 H Pending
Calcium 8.2 L Pending
Vital Signs:
Vital Signs
Temp Pulse Resp BP Pulse Ox
98.1 F 80 18 119/61 95
01/27/25 15:56 01/27/25 14:56 01/27/25 14:56 01/27/25 10:00 01/27/25 14:56
I&O
01/26/25 01/27/2525
06:59 06:59 06:59
Intake Total 580 / 580
Output Total 450 / 450
Balance 130 / 130
Review of Systems
-
Respiratory: Reports No Symptoms
Cardiac: Reports No Symptoms
Abdomen/GI: Reports No Symptoms
Physical Exam
-
General: No Apparent Distress
HEENT: Moist Mucous Membranes and Oxygen
Respiratory: Clear to Auscultation
Cardiac: Regular Rhythm and S1/S2
GI: Soft, Nontender and Nondistended
Skin: Warm
Neuro: Negative Awake (somnolent)
Psych: Apparent Dementia
[2025-01-27] MEDS: NOVOLOG FLEXPEN-LOW RESISTANCE 3 UNITS SC (17:08)
[2025-01-27 17:18] LABS: Glucose - Point of Care 266 mg/dl (70-99)
[2025-01-27 19:23] LABS: Blood Urea Nitrogen 27 mg/dl (9-20); Calcium 7.7 mg/dl (8.4-10.2); Carbon Dioxide 28 mmol/L (22-30); Chloride 108 mmol/L (98-107); Estimated Creatinine Clearance 38 ml/min; Glucose 215 mg/dl (70-99); Potassium 3.8 mmol/L (3.5-5.1); Sodium 145 mmol/L (135-145); eGFR > 60.00
--- NOTE | 2025-01-27 20:24 | PTCARENOTE ---
This RN cannot verify VS prior to 19:00
[2025-01-27] MEDS: CATAPRES PO (20:26)
[2025-01-27] MEDS: DEPAKOTE SPRINKLE 125 MG PO (21:10)
[2025-01-27 22:10] LABS: Glucose - Point of Care 124 mg/dl (70-99)
--- NOTE | 2025-01-27 23:30 | PTCARENOTE ---
Rc'd patient from IMU. Patient is sleeping. AAOx self. stable vitals. Offers no complaints. Bed alarm on place for safety. POC reviewed with patient.
[2025-01-28 00:08] VITALS: BP 127/66
[2025-01-28] MEDS: UNASYN IV ×4 (01:20→19:59)
[2025-01-28] MEDS: SYNTHROID 25 MCG PO (06:00)
[2025-01-28] MEDS: 0.45%NACL 1000 IV ×2 (06:01→20:00)
[2025-01-28 06:41] LABS: Hematocrit 41.5 % (39.0-52.0); Hemoglobin 12.8 g/dL (13.0-18.0); Mean Corp Hgb Conc. 30.8 g/dL (33.0-37.0); Mean Corpuscular Hgb 29.9 pg (27.0-31.0); Mean Platelet Volume 10.2 fL (7.4-10.4); Platelet Count 270 10^3/uL (130-400); Red Blood Cell Count 4.28 10^6/uL (4.70-6.10); Red Cell Dist. Width 14.5 % (11.5-14.5); White Blood Cell Count 9.1 10^3/uL (4.8-10.8)
[2025-01-28 07:20] VITALS: BP 130/75
[2025-01-28] MEDS: DUONEB 3 ML INH ×4 (07:22→20:25)
[2025-01-28 07:46] LABS: Blood Urea Nitrogen 17 mg/dl (9-20); Calcium 7.8 mg/dl (8.4-10.2); Carbon Dioxide 32 mmol/L (22-30); Chloride 106 mmol/L (98-107); Estimated Creatinine Clearance 42 ml/min; Glucose 115 mg/dl (70-99); Potassium 3.5 mmol/L (3.5-5.1); Sodium 145 mmol/L (135-145); eGFR > 60.00
--- NOTE | 2025-01-28 08:44 | W.PN.HOSP.TC ---
Addendum entered and electronically signed by Juan Akbar MD 01/28/25 09:44:
Adjust diagnosis
Acute hypoxic respiratory failure
-Oxygen requirement decreased and on 10 L apparently right now
-repeat portable cxr ordered to r/o mucus plugging
-getting IVF for correction of hyponatremia, asked RN to hold until x-ray resulted ruling out any pulmonary edema
Original Note:
Today's Communication/Plan
-
maintain 0.45 ns
f/u BMP
continue unasyn
Assessment / Plan
Assessment / Plan
1. Presumed aspiration pneumonia
Sepsis -improving
-Chest x-ray showing bilateral infiltrates
-Legionella/strep pneumonia/flu/COVID-negative
-Blood culture pending
-Adjust antibiotic to empiric Unasyn
2. Acute hypoxic respiratory insufficiency
-Wean off as possible
3. Toxic metabolic encephalopathy
Hypernatremia - Improving
-Hypernatremic with decreased oral intake likely
-maintain on IVF to 0.45 NS
-Na down to 145, keep hypotonic NS for now. recheck BMP in afternoon
-Avoid sedative medication as possible
4. Dementia without behavioral problems
-Continue Depakote and hold trazodone for today
Essential HTN
Hypothyroidism
Limited DNR
Anticipated Discharge: 24 - 48 hours
Subjective/Interval History
-
Date of Service: January 28, 2025
patient waking up
mumbling words
afebrile overnight
required o2 through NC
Objective Data
-
Labs:
Laboratory Results
01/28/25
06:12
WBC 9.1
Hgb 12.8 L
Hct 41.5
Plt Count 270
Sodium 145
Potassium 3.5
Chloride 106
Carbon Dioxide 32 H
BUN 17
Creatinine 0.9
Glucose 115 H
Calcium 7.8 L
Vital Signs:
Vital Signs
Temp Pulse Resp BP Pulse Ox
98.9 F 73 16 130/75 92
01/28/25 07:20 01/28/25 07:24 01/28/25 07:24 01/28/25 07:20 01/28/25 07:24
I&O
01/27/25 01/28/25 01/29/25
06:59 06:59 06:59
Intake Total 580 / 580 2680 / 2680
Output Total 450 / 450
Balance 130 / 130 2680 / 2680
Review of Systems
-
Unable to obtain full review of systems at this time due to: Acuity
Physical Exam
-
General: No Apparent Distress
HEENT: Moist Mucous Membranes and Oxygen (2L NC)
Respiratory: Clear to Auscultation
Cardiac: Regular Rhythm and S1/S2
GI: Soft, Nontender and Nondistended
Neuro: Awake (somnolent)
Psych: Apparent Dementia
[2025-01-28 09:17] LABS: Glucose - Point of Care 94 mg/dl (70-99)
[2025-01-28] MEDS: HEPARIN 5000 UNITS SC ×3 (09:27→23:26)
[2025-01-28] MEDS: NOVOLOG FLEXPEN-LOW RESISTANCE SC ×3 (09:40→16:41)
--- NOTE | 2025-01-28 09:44 | PTCARENOTE ---
Patient now on 10L midflow with pulse ox 92%. Change of resp. status this am patient was 92% on RA. Dr. Akbar made aware, CXR ordered. No PO meds given patient is drowsy. Breakfast tray held due to mental status.
[2025-01-28] MEDS: CATAPRES PO ×2 (09:46→19:58)
[2025-01-28] MEDS: ZEBETA PO (09:47)
[2025-01-28] MEDS: DEPAKOTE SPRINKLE PO ×2 (09:47→17:25)
[2025-01-28 11:45] LABS: Glucose - Point of Care 89 mg/dl (70-99)
--- NOTE | 2025-01-28 14:30 | PTOTSP ---
Speech Language Pathology
Pt seen for dysphagia tx. Earlier this date, had increased 02 requirements with minimal responsiveness. P.O. held this date so far. When DOOR CLAMP OPERATOR walked in room, pt opened eyes and was verbally responding to questions. Oriented to name and only.
Stated he feels 'weak' but 'better' than earlier. P.O. trials of puree, thin liquids, and regular solids provided. Slightly prolonged mastication noted with no oral residue. No overt signs of aspiration. However, given current PNA with increased
02 needs this date, instrumental swallowing assessment indicated.
Recommend:
(1) VSE 3/5
(2) Continue IDDSI Level 5 (minced/moist) solids and thin liquids
(3) Aspiration precautions: sit upright, slow rate, full supervision with assist as needed
(4) Meds as tolerated
(5) DOOR CLAMP OPERATOR to continue to follow
[2025-01-28 15:17] VITALS: BP 131/70
[2025-01-28 15:23] LABS: Chloride 105 mmol/L (98-107); Potassium 3.4 mmol/L (3.5-5.1); Sodium 140 mmol/L (135-145)
[2025-01-28 15:25] LABS: Blood Urea Nitrogen 14 mg/dl (9-20); Calcium 7.4 mg/dl (8.4-10.2); Carbon Dioxide 34 mmol/L (22-30); Estimated Creatinine Clearance 42 ml/min; Glucose 104 mg/dl (70-99); eGFR > 60.00
--- NOTE | 2025-01-28 16:28 | SUR.PHASEII ---
Speech Language Pathology
Pt seen for dysphagia tx. Earlier this date, had increased 02 requirements with minimal responsiveness. P.O. held this date so far. When COLOR STRAINING BAG WASHER walked in room, pt opened eyes and was verbally responding to questions. Oriented to name and only.
Stated he feels 'weak' but 'better' than earlier. P.O. trials of puree, thin liquids, and regular solids provided. Slightly prolonged mastication noted with no oral residue. No overt signs of aspiration. However, given current PNA with increased
02 needs this date, instrumental swallowing assessment indicated.
Recommend:
(1) VSE 3/5
(2) Continue IDDSI Level 5 (minced/moist) solids and thin liquids
(3) Aspiration precautions: sit upright, slow rate, full supervision with assist as needed
(4) Meds as tolerated
(5) COLOR STRAINING BAG WASHER to continue to follow
--- NOTE | 2025-01-28 16:30 | CM ---
Patient seen bedside, continue nebs, IV anbx and oxygen 8 liters today.
PT recommending skilled rehab.
Plan: back to [facility] when stable.
[2025-01-28 16:39] LABS: Glucose - Point of Care 104 mg/dl (70-99)
[2025-01-28] MEDS: GLUCOPHAGE PO (17:25)
--- NOTE | 2025-01-28 18:36 | PTCARENOTE ---
of patient states she is POA and does not want daughter receiving any information regarding patient. She also states she does not want patient returning to [place] and case management is aware of this per . Daughter removed from chart
as contact.
[2025-01-28] MEDS: DEPAKOTE SPRINKLE 125 MG PO (20:53)
[2025-01-28 22:05] LABS: Glucose - Point of Care 193 mg/dl (70-99)
[2025-01-28 23:55] VITALS: BP 102/68
[2025-01-29] MEDS: UNASYN IV ×4 (01:43→20:20)
[2025-01-29] MEDS: SYNTHROID 25 MCG PO (05:22)
[2025-01-29 07:05] VITALS: BP 142/81
[2025-01-29 07:07] LABS: Hematocrit 35.7 % (39.0-52.0); Hemoglobin 11.7 g/dL (13.0-18.0); Mean Corp Hgb Conc. 32.8 g/dL (33.0-37.0); Mean Corpuscular Hgb 30.8 pg (27.0-31.0); Mean Corpuscular Volume 93.9 fL (80.0-94.0); Mean Platelet Volume 10.5 fL (7.4-10.4); Platelet Count 243 10^3/uL (130-400); Red Cell Dist. Width 14.2 % (11.5-14.5); White Blood Cell Count 10.3 10^3/uL (4.8-10.8)
[2025-01-29 07:22] LABS: Blood Urea Nitrogen 15 mg/dl (9-20); Calcium 7.7 mg/dl (8.4-10.2); Carbon Dioxide 30 mmol/L (22-30); Chloride 106 mmol/L (98-107); Estimated Creatinine Clearance 42 ml/min; Glucose 135 mg/dl (70-99); Potassium 3.5 mmol/L (3.5-5.1); Sodium 141 mmol/L (135-145); eGFR > 60.00
[2025-01-29] MEDS: DUONEB 3 ML INH ×4 (07:59→19:29)
[2025-01-29 08:40] LABS: Glucose - Point of Care 105 mg/dl (70-99)
[2025-01-29] MEDS: NOVOLOG FLEXPEN-LOW RESISTANCE SC ×2 (08:43→17:06)
--- NOTE | 2025-01-29 09:00 | PTOTSP ---
Speech Language Pathology
VIDEOFLUOROSCOPIC SWALLOWING EXAMINATION (VSE) completed. Mild oropharyngeal dysphagia noted. Only trace intermittent pharyngeal residue noted. Supraglottic penetration which fully cleared (PAS 2) noted with puree prior to swallow initiation.
Supraglottic penetration which did not fully clear (PAS 3) noted with thin liquids via cup and consecutive straw sips. No other penetration or any aspiration noted. Esophageal sweep demonstrated some residue without backflow.
Recommend:
(1) Regular solids/thin liquids
(2) General aspiration precautions
(3) Meds as tolerated
(4) CYTOTECHNOLOGIST/CYTOLOGY SUPERVISOR to sign off as swallow functional. Please reconsult as indicated
[2025-01-29] MEDS: HEPARIN 5000 UNITS SC ×2 (09:43→17:19)
[2025-01-29] MEDS: GLUCOPHAGE 500 MG PO ×2 (09:43→17:19)
[2025-01-29] MEDS: ZEBETA 2.5 MG PO (09:43)
[2025-01-29] MEDS: CATAPRES 0.1 MG PO ×2 (09:44→20:21)
[2025-01-29] MEDS: DEPAKOTE SPRINKLE 125 MG PO ×3 (09:44→20:36)
[2025-01-29 12:10] LABS: Glucose - Point of Care 174 mg/dl (70-99)
--- NOTE | 2025-01-29 12:14 | CM ---
Patient seen bedside.
Continues IV anbx, nebs and oxygen 4l.
Spoke with via phone, is reusing to go back to [facility], DONELL explained we can put out some referrals while patient is here but if it is time for discharged and there are not accepting beds, he may need to go back to [facility] and they
will need to assist with alternate placement. Patient was transferred to [facility] from [facility] because she was unhappy. Spouse refused referrals to [facility] and [facility]. Referrals placed via [facility]. Spouse crying
on phone that she is not happy there and would take patient home if she could. Per MD, spouse does not want care discussed with daughter.
Spoke with Camille from [facility], patient does have medicare days available. Camille aware patient is looking for another facility, but may be returning to them. [facility] will accept back.
Plan: skilled rehab once medically stable.
[2025-01-29] MEDS: NOVOLOG FLEXPEN-LOW RESISTANCE 1 UNITS SC (12:48)
[2025-01-29 15:13] VITALS: BP 110/62
--- NOTE | 2025-01-29 15:30 | W.PN.HOSP.TC ---
Today's Communication/Plan
-
continue abx
wean off o2
earliest discharge tomorrow
Assessment / Plan
Assessment / Plan
1. Presumed aspiration pneumonia
Sepsis -improving
-Chest x-ray showing bilateral infiltrates
-Legionella/strep pneumonia/flu/COVID-negative
-Blood culture neg
-Adjust antibiotic to empiric Unasyn
2. Acute hypoxic respiratory failure
-Was requiring 10 L oxygen through nasal cannula yesterday
-Repeat chest x-ray did not show any mucous plugging/atelectasis
-Able to be weaned off of to 4 L oxygen again today
3. Toxic metabolic encephalopathy -Improved
Hypernatremia - Improving
-Hypernatremic with decreased oral intake likely
-Na down to 141 today
-stop further IVF
-Avoid sedative medication as possible
4. Dementia without behavioral problems
-Continue Depakote and hold trazodone for today
Essential HTN
Hypothyroidism
Limited DNR
Care plan discussed with patient spouse. Patient likely be medically cleared tomorrow. Patient spouse requested patient to be transferred to different group home and I have discussed that this wont be possible, spouse remains adamant about being
transferred to different nursing on and if not possible stating to take patient home
Anticipated Discharge: Within 24 hours
Subjective/Interval History
-
Date of Service: January 29, 2025
Patient mentation better
Oxygen requirement is down to 4 L today
Afebrile overnight
Objective Data
-
Labs:
Laboratory Results
01/29/25
06:21
WBC 10.3
Hgb 11.7 L
Hct 35.7 L
Plt Count 243
Sodium 141
Potassium 3.5
Chloride 106
Carbon Dioxide 30
BUN 15
Creatinine 0.9
Glucose 135 H
Calcium 7.7 L
Vital Signs:
Vital Signs
Temp Pulse Resp BP Pulse Ox
98 F 76 16 142/83 94
01/29/25 07:05 01/29/25 11:40 01/29/25 11:40 01/29/25 09:44 01/29/25 12:00
I&O
01/28/25 01/29/25 01/30/25
06:59 06:59 06:59
Intake Total 2680 / 2680 970 / 970
Output Total 325 / 325
Balance 2680 / 2680 645 / 645
Review of Systems
-
Respiratory: Reports No Symptoms
Cardiac: Reports No Symptoms
Abdomen/GI: Reports No Symptoms
Physical Exam
-
General: No Apparent Distress
HEENT: Moist Mucous Membranes and Oxygen (4L NC)
Respiratory: Clear to Auscultation
Cardiac: Regular Rhythm and S1/S2
GI: Soft, Nontender and Nondistended
Neuro: Awake (somnolent) and No Motor Deficits
Psych: Apparent Dementia
[2025-01-29] MEDS: 0.45%NACL 1000 IV (15:38)
[2025-01-29 16:19] VITALS: BP 111/63; PULSE 90; O2SAT 97
[2025-01-29 16:40] LABS: Glucose - Point of Care 137 mg/dl (70-99)
[2025-01-29 21:16] LABS: Glucose - Point of Care 123 mg/dl (70-99)
[2025-01-29 23:19] VITALS: BP 116/74
[2025-01-30] MEDS: HEPARIN 5000 UNITS SC ×4 (01:13→22:58)
[2025-01-30] MEDS: UNASYN IV ×4 (01:14→21:04)
[2025-01-30] MEDS: SYNTHROID 25 MCG PO (05:13)
[2025-01-30 06:38] VITALS: BMI 21.4
[2025-01-30 07:05] VITALS: BP 118/65
[2025-01-30 07:18] LABS: Hematocrit 34.9 % (39.0-52.0); Hemoglobin 11.4 g/dL (13.0-18.0); Mean Corp Hgb Conc. 32.7 g/dL (33.0-37.0); Mean Corpuscular Hgb 30.2 pg (27.0-31.0); Mean Corpuscular Volume 92.6 fL (80.0-94.0); Mean Platelet Volume 10.3 fL (7.4-10.4); Platelet Count 222 10^3/uL (130-400); Red Blood Cell Count 3.77 10^6/uL (4.70-6.10); Red Cell Dist. Width 14.1 % (11.5-14.5); White Blood Cell Count 10.3 10^3/uL (4.8-10.8)
[2025-01-30] MEDS: DUONEB 3 ML INH ×4 (07:24→19:51)
[2025-01-30 08:09] LABS: Glucose - Point of Care 76 mg/dl (70-99)
[2025-01-30 08:10] LABS: Blood Urea Nitrogen 14 mg/dl (9-20); Calcium 7.8 mg/dl (8.4-10.2); Carbon Dioxide 29 mmol/L (22-30); Chloride 105 mmol/L (98-107); Estimated Creatinine Clearance 48 ml/min; Glucose 88 mg/dl (70-99); Potassium 3.6 mmol/L (3.5-5.1); Sodium 139 mmol/L (135-145); eGFR > 60.00
[2025-01-30 09:04] VITALS: O2SAT 94
[2025-01-30] MEDS: NOVOLOG FLEXPEN-LOW RESISTANCE SC ×3 (10:15→18:10)
[2025-01-30] MEDS: CATAPRES 0.1 MG PO ×2 (10:17→21:09)
[2025-01-30] MEDS: GLUCOPHAGE 500 MG PO ×2 (10:17→17:22)
[2025-01-30] MEDS: ZEBETA 2.5 MG PO (10:18)
[2025-01-30] MEDS: DEPAKOTE SPRINKLE 125 MG PO ×3 (10:18→21:04)
[2025-01-30] MEDS: FLUSH (NSS) 1 FLUSH IV (10:19)
[2025-01-30 11:46] LABS: Glucose - Point of Care 154 mg/dl (70-99)
--- NOTE | 2025-01-30 12:10 | W.PN.HOSP.TC ---
Today's Communication/Plan
-
Provide IV Lasix 20 mg once
wean off o2 as possible
d/c planning
Assessment / Plan
Assessment / Plan
1. Presumed aspiration pneumonia
Sepsis -improving
-Chest x-ray showing bilateral infiltrates
-Legionella/strep pneumonia/flu/COVID-negative
-Blood culture neg
-Adjust antibiotic to empiric Unasyn
2. Acute hypoxic respiratory failure
-Was requiring 10 L oxygen through nasal cannula yesterday
-Repeat chest x-ray did not show any mucous plugging/atelectasis
-Able to be weaned off of to 4 L oxygen again today
-Provide IV Lasix 20mg x1 today
3. Toxic metabolic encephalopathy -Improved
Hypernatremia - Improving
-Hypernatremic with decreased oral intake likely
-Na down to 139
-stop further IVF
-Avoid sedative medication as possible
4. Dementia without behavioral problems
-Continue Depakote and hold trazodone for today
5. Hypoglycemia
-Encourage oral intake
-If any signs of worsening encephalopathy, need to check random blood glucose
Essential HTN
Hypothyroidism
Limited DNR
3/5 Care plan discussed with patient spouse. Patient likely be medically cleared tomorrow. Patient spouse requested patient to be transferred to different alf and I have discussed that this wont be possible, spouse remains adamant about
being transferred to different nursing on and if not possible stating to take patient home
Anticipated Discharge: Within 24 hours
Subjective/Interval History
-
Date of Service: January 30, 2025
Continues to remain on oxygen through nasal cannula
Afebrile overnight
No reported problems
Objective Data
-
Labs:
Laboratory Results
01/30/25
07:00
WBC 10.3
Hgb 11.4 L
Hct 34.9 L
Plt Count 222
Sodium 139
Potassium 3.6
Chloride 105
Carbon Dioxide 29
BUN 14
Creatinine 0.8
Glucose 88
Calcium 7.8 L
Vital Signs:
Vital Signs
Temp Pulse Resp BP Pulse Ox
97.4 F 74 16 118/65 97
01/30/25 07:05 01/30/25 11:21 01/30/25 11:21 01/30/25 10:18 01/30/25 11:21
I&O
01/29/25 01/30/25 01/31/25
06:59 06:59 06:59
Intake Total 970 / 970 1620 / 1620
Output Total 325 / 325
Balance 645 / 645 1620 / 1620
Review of Systems
-
Respiratory: Reports No Symptoms
Cardiac: Reports No Symptoms
Abdomen/GI: Reports No Symptoms
Physical Exam
-
General: No Apparent Distress
HEENT: Moist Mucous Membranes and Oxygen (4L NC)
Respiratory: Clear to Auscultation
Cardiac: Regular Rhythm and S1/S2
GI: Soft, Nontender and Nondistended
Neuro: Awake (somnolent) and No Motor Deficits
Psych: Apparent Dementia
--- NOTE | 2025-01-30 13:16 | CM ---
Addendum entered by Nanci Garcia 01/30/25 13:42:
TC to patients spouse, she does not want information provided to daughter. Patient accepted at a few facilities and names and addresses given to patients spouse to see today in anticipation of possible d/c tomorrow.
Spouse says she will visit facilities and CM told patients spouse if patient is ready for d/c, [facility] will accept back and she can work with the facility to transfer him. Spouse is refusing for patient to return to [facility].
Original Note:
TC from patients daughter Cathy requesting to discuss her dad.
Daughter not listed as a contact on the chart.
Daughter asked how she could be made a contact< cm will get back to her.
Daughter angry and stated she spoke with a doctor yesterday.
Daughter planning on coming to the hospital to visit today.
[2025-01-30 14:07] LABS: Glucose - Point of Care 140 mg/dl (70-99)
[2025-01-30] MEDS: LASIX 20 MG IV (14:07)
[2025-01-30] MEDS: FLUSH (NSS) 2 FLUSH IV (14:07)
[2025-01-30 15:15] VITALS: BP 124/59
[2025-01-30 18:08] LABS: Glucose - Point of Care 125 mg/dl (70-99)
[2025-01-30 21:41] LABS: Glucose - Point of Care 110 mg/dl (70-99)
[2025-01-30 23:19] VITALS: BP 118/66
[2025-01-31] MEDS: UNASYN IV ×4 (02:44→21:15)
[2025-01-31] MEDS: SYNTHROID 25 MCG PO (05:42)
[2025-01-31 07:25] VITALS: BP 125/69
[2025-01-31] MEDS: HEPARIN 5000 UNITS SC ×2 (07:52→16:30)
[2025-01-31] MEDS: ZEBETA 2.5 MG PO (07:53)
[2025-01-31] MEDS: DEPAKOTE SPRINKLE 125 MG PO ×3 (07:53→21:15)
[2025-01-31] MEDS: CATAPRES 0.1 MG PO ×2 (07:53→21:15)
[2025-01-31] MEDS: GLUCOPHAGE 500 MG PO (08:40)
[2025-01-31] MEDS: NOVOLOG FLEXPEN-LOW RESISTANCE SC ×3 (08:42→16:59)
[2025-01-31 08:45] LABS: Glucose - Point of Care 107 mg/dl (70-99)
--- NOTE | 2025-01-31 11:29 | CM ---
Patient seen bedside.
Spouse does not want patient to go back to [facility]. Spouse is looking a alterate facilities.
per spouse she is going to see 2 facilities today.
[facility] does not have a bed, left messages for [facility] and [facility].
Spouse interested in patient transferring up near daughter in [place] and asked for phone number- [phone]
Spouse aware that this will need to be done after he is transferred to a facility here since it will take some time. Spouse also aware that for patient to be transferred to a facility in [place] she will be responsible for transportation costs.
Patient still not agreeable for daughter being able to discuss care.
Plan skilled rehab once bed available. refusing return to [facility].
[2025-01-31 12:23] LABS: Glucose - Point of Care 68 mg/dl (70-99)
[2025-01-31 12:49] LABS: Glucose - Point of Care 72 mg/dl (70-99)
[2025-01-31 13:38] LABS: Blood Urea Nitrogen 14 mg/dl (9-20); Carbon Dioxide 35 mmol/L (22-30); Chloride 101 mmol/L (98-107); Estimated Creatinine Clearance 39 ml/min; Glucose 75 mg/dl (70-99); Potassium 3.9 mmol/L (3.5-5.1); Sodium 138 mmol/L (135-145); eGFR > 60.00
[2025-01-31 15:17] LABS: Glucose - Point of Care 113 mg/dl (70-99)
[2025-01-31 15:20] VITALS: BP 125/62
--- NOTE | 2025-01-31 15:22 | W.PN.HOSP.TC ---
Today's Communication/Plan
-
medically clear
discharge planning ongoing
Assessment / Plan
Assessment / Plan
1. Presumed aspiration pneumonia
Sepsis -improving
-Chest x-ray showing bilateral infiltrates
-Legionella/strep pneumonia/flu/COVID-negative
-Blood culture neg
-VSE cleared and started on reg diet.
-Adjust antibiotic to empiric Unasyn, last dose monday ~ 5days
2. Acute hypoxic respiratory failure -resolved
-Was requiring 10 L oxygen through nasal cannula post admission
-Repeat chest x-ray did not show any mucous plugging/atelectasis
-Provided IV Lasix 20mg x1 today, after which patient was able to be weaned off of o2
3. Toxic metabolic encephalopathy -Improved
Hypernatremia - Improving
-Hypernatremic with decreased oral intake likely
-stopped further IVF
-Avoid sedative medication as possible
4. Dementia without behavioral problems
-Continue Depakote and hold trazodone for today
5. Hypoglycemia
-Encourage oral intake
-If any signs of worsening encephalopathy, need to check random blood glucose
Essential HTN
Hypothyroidism
Limited DNR
3 Care plan discussed with patient spouse. Patient likely be medically cleared tomorrow. Patient spouse requested patient to be transferred to different senior living and I have discussed that this wont be possible, spouse remains adamant about
being transferred to different nursing on and if not possible stating to take patient home
3 repeat discussion with spouse regarding need of being appropriate for discharging to senior living facility. Spouse wants to find a new facility and case management helping. Spouse wanting day to 2 to visit new facility before agreeing on
one.
Anticipated Discharge: Today
Subjective/Interval History
-
Date of Service: January 31, 2025
no issues overnight
off of o2
Objective Data
-
Labs:
Laboratory Results
01/31/25 01/31/25
10:50 13:03
Sodium Cancelled 138
Potassium Cancelled 3.9
Chloride Cancelled 101
Carbon Dioxide Cancelled 35 H
BUN Cancelled 14
Creatinine Cancelled 1.0
Glucose Cancelled 75
Calcium Cancelled 8.0 L
Vital Signs:
Vital Signs
Temp Pulse Resp BP Pulse Ox
97.5 F 79 20 125/69 95
01/31/25 07:25 01/31/25 07:53 01/31/25 07:25 01/31/25 07:53 01/31/25 10:15
I&O
01/30/25 01/31/25 02/01/25
06:59 06:59 06:59
Intake Total 1620 / 1620 1080 / 1080
Balance 1620 / 1620 1080 / 1080
Review of Systems
-
Unable to obtain full review of systems at this time due to: Dementia and Acuity
Physical Exam
-
General: No Apparent Distress
HEENT: Moist Mucous Membranes and Oxygen (4L NC)
Respiratory: Clear to Auscultation
Cardiac: Regular Rhythm and S1/S2
GI: Soft, Nontender and Nondistended
Neuro: Awake (somnolent) and No Motor Deficits
Psych: Apparent Dementia
[2025-01-31] MEDS: GLUCOPHAGE PO (17:00)
[2025-01-31 17:01] LABS: Glucose - Point of Care 77 mg/dl (70-99)
[2025-01-31 21:30] LABS: Glucose - Point of Care 80 mg/dl (70-99)
[2025-01-31 23:45] VITALS: BP 115/66
[2025-02-01] MEDS: HEPARIN SC (01:24)
[2025-02-01 03:04] LABS: Glucose - Point of Care 82 mg/dl (70-99)
[2025-02-01] MEDS: UNASYN IV ×4 (03:05→19:43)
[2025-02-01] MEDS: SYNTHROID 25 MCG PO (05:48)
[2025-02-01 07:49] VITALS: BP 111/71
[2025-02-01 08:27] LABS: Glucose - Point of Care 85 mg/dl (70-99)
[2025-02-01] MEDS: GLUCOPHAGE PO (09:00)
[2025-02-01] MEDS: NOVOLOG FLEXPEN-LOW RESISTANCE SC ×3 (09:53→16:49)
[2025-02-01] MEDS: CATAPRES 0.1 MG PO ×2 (09:54→19:43)
[2025-02-01] MEDS: DEPAKOTE SPRINKLE 125 MG PO ×3 (09:54→19:43)
[2025-02-01] MEDS: HEPARIN 5000 UNITS SC ×2 (09:54→17:57)
[2025-02-01] MEDS: FLUSH (NSS) 2 FLUSH IV ×2 (09:58→14:21)
[2025-02-01] MEDS: ZEBETA 2.5 MG PO (09:58)
--- NOTE | 2025-02-01 12:02 | W.PN.HOSP.TC ---
Today's Communication/Plan
-
medically stable for discharge
Assessment / Plan
Assessment / Plan
1. Presumed aspiration pneumonia
Sepsis -improving
-Chest x-ray showing bilateral infiltrates
-Legionella/strep pneumonia/flu/COVID-negative
-Blood culture neg
-VSE cleared and started on reg diet.
-Adjust antibiotic to empiric Unasyn, last dose monday ~ 5days
2. Acute hypoxic respiratory failure -resolved
-Was requiring 10 L oxygen through nasal cannula post admission
-Repeat chest x-ray did not show any mucous plugging/atelectasis
-Provided IV Lasix 20mg x1 today, after which patient was able to be weaned off of o2
3. Toxic metabolic encephalopathy -Improved
Hypernatremia - Improving
-Hypernatremic with decreased oral intake likely
-stopped further IVF
-Avoid sedative medication as possible
4. Dementia without behavioral problems
-Continue Depakote and hold trazodone for today
5. Hypoglycemia
-Encourage oral intake
-If any signs of worsening encephalopathy, need to check random blood glucose
Essential HTN
Hypothyroidism
Limited DNR
3/ Care plan discussed with patient spouse. Patient likely be medically cleared tomorrow. Patient spouse requested patient to be transferred to different alf and I have discussed that this wont be possible, spouse remains adamant about
being transferred to different nursing on and if not possible stating to take patient home
3/ repeat discussion with spouse regarding need of being appropriate for discharging to fpc facility. Spouse wants to find a new facility and case management helping. Spouse wanting day to 2 to visit new facility before agreeing on
one.
Anticipated Discharge: Today
Subjective/Interval History
-
Date of Service: February 01, 2025
Resting comfortably in bed
No issues overnight
Objective Data
-
Vital Signs:
Vital Signs
Temp Pulse Resp BP Pulse Ox
98 F 71 18 111/71 92
02/01/25 07:49 02/01/25 07:49 02/01/25 07:49 02/01/25 09:58 02/01/25 07:49
I&O
01/31/25 02/01/25 02/02/25
06:59 06:59 07:59
Intake Total 1080 / 1080 480 / 480
Balance 1080 / 1080 480 / 480
Review of Systems
-
Unable to obtain full review of systems at this time due to: Dementia
Physical Exam
-
General: No Apparent Distress
HEENT: Moist Mucous Membranes and Oxygen (4L NC)
Respiratory: Clear to Auscultation
Cardiac: Regular Rhythm and S1/S2
GI: Soft, Nontender and Nondistended
Neuro: Awake (somnolent) and No Motor Deficits
Psych: Apparent Dementia
--- NOTE | 2025-02-01 12:19 | CM ---
CM spoke with who toured [facility]
Per , she is agreeable to placement and toured with the Director who says a bed will be available Monday.
Referral was previously sent through [facility] and accepted pending bed availability
[2025-02-01 12:59] LABS: Glucose - Point of Care 130 mg/dl (70-99)
[2025-02-01 15:10] VITALS: BP 118/70
[2025-02-01 16:48] LABS: Glucose - Point of Care 133 mg/dl (70-99)
[2025-02-01] MEDS: GLUCOPHAGE 500 MG PO (17:57)
[2025-02-01 21:40] LABS: Glucose - Point of Care 109 mg/dl (70-99)
[2025-02-01 23:05] VITALS: BP 128/64
[2025-02-02] MEDS: UNASYN IV ×2 (03:00→07:21)
[2025-02-02] MEDS: SYNTHROID 25 MCG PO (05:15)
[2025-02-02] MEDS: HEPARIN SC (05:15)
[2025-02-02 07:16] LABS: Glucose - Point of Care 79 mg/dl (70-99)
[2025-02-02] MEDS: NOVOLOG FLEXPEN-LOW RESISTANCE SC ×2 (07:17→12:28)
[2025-02-02 07:18] VITALS: BP 115/68
[2025-02-02] MEDS: GLUCOPHAGE PO (07:18)
[2025-02-02] MEDS: HEPARIN 5000 UNITS SC ×2 (07:21→15:21)
[2025-02-02] MEDS: DEPAKOTE SPRINKLE 125 MG PO ×3 (07:21→21:29)
[2025-02-02] MEDS: ZEBETA 2.5 MG PO (07:22)
[2025-02-02] MEDS: CATAPRES 0.1 MG PO ×2 (07:22→21:28)
[2025-02-02] MEDS: FLUSH (NSS) 1 FLUSH IV (07:25)
[2025-02-02 12:11] LABS: Glucose - Point of Care 57 mg/dl (70-99)
--- NOTE | 2025-02-02 12:27 | W.PN.HOSP.TC ---
Today's Communication/Plan
-
monitor BG
discharge planning ongoing
Assessment / Plan
Assessment / Plan
1. Presumed aspiration pneumonia
Sepsis -improving
-Chest x-ray showing bilateral infiltrates
-Legionella/strep pneumonia/flu/COVID-negative
-Blood culture neg
-VSE cleared and started on reg diet.
-Finished course of unasyn.
2. Acute hypoxic respiratory failure -resolved
-Was requiring 10 L oxygen through nasal cannula post admission
-Repeat chest x-ray did not show any mucous plugging/atelectasis
-Provided IV Lasix 20mg x1 today, after which patient was able to be weaned off of o2
3. Toxic metabolic encephalopathy - Resolved
Hypernatremia - Improving
-Hypernatremic with decreased oral intake likely
-stopped further IVF
-Avoid sedative medication as possible
4. Dementia without behavioral problems
-Continue Depakote and hold trazodone for today
5. Hypoglycemia episodes
-Encourage oral intake
-Discontinue ISS/metformin,
-If any signs of worsening encephalopathy, need to check random blood glucose
Essential HTN
Hypothyroidism
Limited DNR
3/ Care plan discussed with patient spouse. Patient likely be medically cleared tomorrow. Patient spouse requested patient to be transferred to different snf and I have discussed that this wont be possible, spouse remains adamant about
being transferred to different nursing on and if not possible stating to take patient home
3/ repeat discussion with spouse regarding need of being appropriate for discharging to prison facility. Spouse wants to find a new facility and case management helping. Spouse wanting day to 2 to visit new facility before agreeing on
one.
Anticipated Discharge: Within 24 hours
Subjective/Interval History
-
Date of Service: February 02, 2025
resting comfortably in bed
no problems
Objective Data
-
Vital Signs:
Vital Signs
Temp Pulse Resp BP Pulse Ox
97.9 F 77 18 115/68 95
02/02/25 07:18 02/02/25 07:22 02/02/25 07:18 02/02/25 07:22 02/02/25 10:15
I&O
02/01/25 02/02/25 02/03/25
05:59 06:59 06:59
Intake Total
Balance
Review of Systems
-
Unable to obtain full review of systems at this time due to: Dementia
Physical Exam
-
General: No Apparent Distress
HEENT: Moist Mucous Membranes; Negative Oxygen
Respiratory: Clear to Auscultation
GI: Soft, Nontender and Nondistended
Neuro: Awake and No Motor Deficits
Psych: Apparent Dementia
[2025-02-02 12:37] LABS: Glucose - Point of Care 84 mg/dl (70-99)
[2025-02-02 14:49] LABS: Glucose - Point of Care 118 mg/dl (70-99)
[2025-02-02 15:06] VITALS: BP 137/79
[2025-02-02 16:37] LABS: Glucose - Point of Care 112 mg/dl (70-99)
[2025-02-02 21:32] LABS: Glucose - Point of Care 165 mg/dl (70-99)
[2025-02-02 23:43] VITALS: BP 109/51
[2025-02-03] MEDS: HEPARIN 5000 UNITS SC ×3 (00:18→15:26)
[2025-02-03] MEDS: SYNTHROID 25 MCG PO (05:32)
[2025-02-03 07:32] LABS: Hematocrit 34.7 % (39.0-52.0); Hemoglobin 11.7 g/dL (13.0-18.0); Mean Corp Hgb Conc. 33.7 g/dL (33.0-37.0); Mean Corpuscular Hgb 30.5 pg (27.0-31.0); Mean Corpuscular Volume 90.4 fL (80.0-94.0); Mean Platelet Volume 10.7 fL (7.4-10.4); Platelet Count 247 10^3/uL (130-400); Red Blood Cell Count 3.84 10^6/uL (4.70-6.10); Red Cell Dist. Width 14.6 % (11.5-14.5)
[2025-02-03 08:02] LABS: Blood Urea Nitrogen 12 mg/dl (9-20); Calcium 7.8 mg/dl (8.4-10.2); Carbon Dioxide 28 mmol/L (22-30); Chloride 100 mmol/L (98-107); Estimated Creatinine Clearance 47 ml/min; Glucose 78 mg/dl (70-99); Potassium 4.1 mmol/L (3.5-5.1); Sodium 134 mmol/L (135-145); eGFR > 60.00
[2025-02-03 08:08] LABS: Glucose - Point of Care 82 mg/dl (70-99)
[2025-02-03 08:19] VITALS: BP 141/68
[2025-02-03] MEDS: CATAPRES 0.1 MG PO (09:42)
[2025-02-03] MEDS: DEPAKOTE SPRINKLE 125 MG PO ×2 (09:42→15:25)
[2025-02-03] MEDS: ZEBETA 2.5 MG PO (09:42)
--- NOTE | 2025-02-03 13:37 | CM ---
Chart reviewed for d/c planning. Patient being recommended for skilled rehab w/ transition to LTC. Per chart, patient may have a bed today at [facility] as spouse toured previously. CM spoke w/ Arlen who confirmed patient is able to be accepted today.
CM confirmed w/ patient's spouse on d/c today to [facility]. Spouse is asking for patient to be presentable before d/c.
Updated hospitalist, agreeable to d/c
IMM verbally reviewed, copy on chart
Patient will need ambulance transport
[facility]
Report: [phone]

Plan: D/c to [facility] today. Ambulance transport
[2025-02-03 13:53] LABS: Glucose - Point of Care 123 mg/dl (70-99)
--- NOTE | 2025-02-03 14:06 | W.DCSUMMARY ---
Discharge Summary
Discharge Data
Date of Admission: 01/26/25
Date of Discharge: 02/03/25
-
Pending Results: No
Hospital Course
Mr. Hammond is an 85-year-old male with medical history of hypertension, hypothyroidism, dementia (on scheduled Depakote, as needed trazodone), and enlarged prostate who presented from jail with acute hypoxic respiratory failure and failure to
thrive. He had bilateral pulmonary infiltrates on chest x-ray. He was initially started on broad-spectrum antibiotics. Respiratory panel was negative for influenza or COVID-19. Legionella and strep pneumo urinary antigens were negative. Blood
cultures were negative. His antibiotics were narrowed to Unasyn to complete a 5-day course. He was initially requiring up to 10 L supplemental oxygen via nasal cannula, however was ultimately able to be weaned to room air. His mental status
returned to baseline and he was able to tolerate p.o. diet. He was evaluated by speech and language pathology who recommended a diet of regular consistency solids and thin liquids with aspiration precautions. He was initially hyponatremic with a
serum sodium of 153, which resolved with IV fluids and improved p.o. intake. The patient's spouse would like him to go to [facility] rehab for skilled therapy with planned transition to long-term care as appropriate. He was continued on his
home antihypertensive regimen of bisoprolol and clonidine while inpatient, but his home benazepril and amlodipine were discontinued in order to avoid hypotension. He will need ongoing follow-up with his primary care physician after hospital
discharge for ongoing management and adjustments to his medication regimen as appropriate.
.
Gen-awake and alert, NAD
HEENT-NC, AT, anicteric, clear oral mm
Neck-supple
CV-reg, no M, +S1/S2
Lungs-clear B/L
Abd-soft, NT, ND
Musculoskeletal-no edema, no deformity, decreased muscle bulk throughout
Skin-warm and dry
Neuro-grossly non-focal, no tremor
Psych-calm, cooperative
Discharge Plan
-
Patient Disposition: Prison/SNF
Discharge Diagnosis/Procedures: Acute respiratory failure with hypoxia, aspiration pneumonia, toxic metabolic encephalopathy
Diet: Regular
Activity: With assistance and As tolerated
Activity Restrictions/Additional Instructions:
Mr. Hammond is an 85-year-old male with medical history of hypertension, hypothyroidism, dementia (on scheduled Depakote, as needed trazodone), and enlarged prostate who presented from jail with acute hypoxic respiratory failure and failure to
thrive. He had bilateral pulmonary infiltrates on chest x-ray. He was initially started on broad-spectrum antibiotics. Respiratory panel was negative for influenza or COVID-19. Legionella and strep pneumo urinary antigens were negative. Blood
cultures were negative. His antibiotics were narrowed to Unasyn to complete a 5-day course. He was initially requiring up to 10 L supplemental oxygen via nasal cannula, however was ultimately able to be weaned to room air. His mental status
returned to baseline and he was able to tolerate p.o. diet. He was evaluated by speech and language pathology who recommended a diet of regular consistency solids and thin liquids with aspiration precautions. He was initially hyponatremic with a
serum sodium of 153, which resolved with IV fluids and improved p.o. intake. The patient's spouse would like him to go to [facility] rehab for skilled therapy with planned transition to long-term care as appropriate. He was continued on his
home antihypertensive regimen of bisoprolol and clonidine while inpatient, but his home benazepril and amlodipine were discontinued in order to avoid hypotension. He will need ongoing follow-up with his primary care physician after hospital
discharge for ongoing management and adjustments to his medication regimen as appropriate.
Referrals:
Dirk Dillon MD [Family Provider] -
Prescriptions:
Continued
melatonin 3 mg Tablet
3 mg PO HS Qty: 30 0RF
clonidine HCl 0.1 mg Tablet
0.1 mg PO BID
acetaminophen [Tylenol] 325 mg Tablet
650 mg PO Q6HPRN PRN (Reason: mild pain)
trazodone 50 mg Tablet
25 mg PO Q6HPRN PRN (Reason: sleep)
polyethylene glycol 3350 [Miralax] 17 gram Powder In Packet
17 g PO DAILYPRN PRN (Reason: constipation)
levothyroxine [Synthroid] 25 mcg Tablet
25 mcg PO DAILY
bisoprolol fumarate 5 mg Tablet
2.5 mg PO DAILY
magnesium hydroxide [Milk of Magnesia] 400 mg/5 mL Suspension
2,400 mg PO DAILYPRN PRN (Reason: if no bm by 3rd day)
bisacodyl [Dulcolax (bisacodyl)] 10 mg Suppository
10 mg AK DAILYPRN PRN (Reason: if no bm aftr mom)
Fleet Enema 19-7 gram/118 mL Enema
118 ml AK DAILYPRN PRN (Reason: if no bm aftr dulcolcax)
divalproex 125 mg Capsule, Delayed Rel Sprinkle
125 mg PO TID
Discontinued
levofloxacin [Levaquin] 750 mg Tablet
750 mg PO QPM
Patient Comments:
take from 01/23/25-01/30/25
amlodipine 5 MG tablet
5 mg PO BID
benazepril 10 MG tablet
10 mg PO BID
Discharge Orders:
Discharge Patient (As Directed); Ordered 02/03/25
Ordered By: Sebastián Sosa
Discharge Date and Time
Print Language: THAI
[2025-02-03 15:50] VITALS: BP 113/65
[2025-02-03 16:48] LABS: Glucose - Point of Care 114 mg/dl (70-99)
== END 2025-02-03 19:32 | DRG 871 ==
LOC: 4 EAST ACU 20:25
PROVIDERS: Hospitalist; ADMITTING PHYSICIAN Internal Medicine; ATTENDING PHYSICIAN Internal Medicine; EMERGENCY PHYSICIAN Student in an Organized Health Care Education/Training Program; FAMILY PHYSICIAN Family Medicine
DX: A41.9 Sepsis, unspecified organism (principal); G92.8 Other toxic encephalopathy; J69.0 Pneumonitis due to inhalation of food and vomit; J96.01 Acute respiratory failure with hypoxia; J18.9 Pneumonia, unspecified organism; F03.918 Unspecified dementia, unspecified severity, with other behavioral disturbance; E87.0 Hyperosmolality and hypernatremia; E87.1 Hypo-osmolality and hyponatremia; I10 Essential (primary) hypertension; R73.9 Hyperglycemia, unspecified; R62.7 Adult failure to thrive; R13.10 Dysphagia, unspecified; N40.0 Benign prostatic hyperplasia without lower urinary tract symptoms; E16.2 Hypoglycemia, unspecified; E03.9 Hypothyroidism, unspecified; E86.0 Dehydration; E86.1 Hypovolemia; Z66 Do not resuscitate; Z88.6 Allergy status to analgesic agent; Z91.011 Allergy to milk products; Z88.7 Allergy status to serum and vaccine; Z91.048 Other nonmedicinal substance allergy status; Z79.890 Hormone replacement therapy; Z11.52 Encounter for screening for COVID-19
CPT/HCPCS: 71045; 71046; 74230; 80048; 80053; 80202; 82805; 82962; 83036; 85025; 85027; 87040; 87070; 87324; 87449; 87502; 87811; 87899; 92526; 92610; 92611; 94640; 96361; 96374; 97163; 97167; 97530; 99285